=== PATIENT | male | born 1990 | race African-American/Black ===

== ENCOUNTER 2025-09-12 03:48 | Observation (INO) | payer BC, MEDICAID, SELFPAY ==
--- OUTSIDE RECORDS SUMMARY | 2020-03-09 08:15 | XMS_ITS | Continuity of Care Document ---
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 [address] , [place], [place], [address], [place]. tel:[phone] Family History Family Member Type Diagnosis Age At Onset Mother Problem Diabetes mellitus Problem No family history of Catarac ts Problem No family history of Glaucom a Mother Problem hypertension Father Problem Diabetes mellitus Problem No family history of Macular degeneration Payers Payer name Insurance type Covered green party ID Franciscaita duarte(s) [facility] [id number] Social History Type Description Quantity Date Captured [...]
--- OUTSIDE RECORDS SUMMARY | 2025-07-21 11:27 | XMS_ITS | Continuity of Care Document ---
Author Organization [employer] [place] Address [address] [place] [address] [address] [place] [address] Phone Care Team Providers Care Nurse Consultant Name Role Phone Ran Crowley PT Unavailable Unavailable Procedures Procedure Date Cancel or No Show Charge Therapeutic Activities Neuromuscular Re-Ed Therapeutic Exercise Manual Therapy Therapeutic Activities Neuromuscular Re-Ed Therapeutic Exercise Manual Therapy Waive Cancel or No Show - No Charge Waive Cancel or No Show - No Charge Progress Note Therapeutic Activities Neuromuscular Re-Ed Therapeutic Exercise Manual Therapy Hot or Cold Pack Therapeutic Activities Neuromuscular Re-Ed Therapeutic Exercise Manual Therapy Therapeutic Activities Neuromuscular Re-Ed Therapeutic Exercise Manual Therapy Hot or Cold Pack Therapeutic Activities Neuromuscular Re-Ed Therapeutic Exercise Manual Therapy Hot or Cold Pack Therapeutic Activities Neuromuscular Re-Ed Therapeutic Exercise Manual Therapy Hot or Cold Pack Therapeutic Activities Neuromuscular Re-Ed Therapeutic Exercise Manual Therapy Hot or Cold Pack Therapeutic Activities Neuromuscular Re-Ed Therapeutic Exercise Manual Therapy Therapeutic Activities Neuromuscular Re-Ed Manual Therapy Therapeutic Exercise Hot or Cold Pack Therapeutic Activities Neuromuscular Re-Ed Therapeutic Exercise Manual Therapy Hot or Cold Pack Waive Cancel or No Show - No Charge Therapeutic Activities Hot or Cold Pack Therapeutic Exercise PT Evaluation Moderate Complexity Therapeutic Activities Therapeutic Exercise Hot or Cold Pack Neuromuscular Re-Ed Therapeutic Exercise Manual Therapy Hot or Cold Pack Therapeutic Activities Neuromuscular Re-Ed Therapeutic Exercise Manual Therapy Hot or Cold Pack PT Evaluation Moderate Complexity Therapeutic Activities Therapeutic Exercise Manual Therapy Hot or Cold Pack Advance Directives Directive Yes / No Effective Date File Name No Information Encounters Encounter Description Practice Location Reason(s) For Visit Diagnoses Date Provider Providers Copied on Encounter [facility] [facility], [place], [place], [address], tel:[phone] [place] No Information 5 Keo Acosta . [facility], [place], [place], [address], tel:[phone] [place] No Information 5 Keo Tong. . Referring Provider: Physician Zurdo. [facility], [address], [place], [place], [address], [place] tel:[phone] [place] No Information 5 Keo Tong. . Referring Provider: Mary Gagnon, [address], [place], [address]. tel:[phone] [place] [address] [address], [place], [place], [address], [place] tel:[phone] [place] No Information 5 Zev Roland. . Referring Provider: Mary Gagnon [address], [place], [address]. tel:[phone] [place] [address] [place], [place] [address], [place], [place], [address], [place] tel:[phone] [place] No Information 5 Keo Tong. . Referring Provider: Physician Zurdo. [facility], [address] [facility], [place], [place], [address], [place] tel:[phone] [place] No Information 5 Keo Tong. . Referring Provider: Physician Zurdo. [facility] [facility], [place], [place], [address], tel:[phone] [place] No Information 5 Keo Tong. . Referring Provider: Mary Gagnon [address], [place], [address]. tel:[phone] [facility], [place], [place], [address], [place] tel:[phone] [place] No Information 0 5 Sonia Andrade. . Referring Provider: Mary Gagnon [address], [place], [address]. tel:[phone] [facility], [place], [place], [address], [place] tel:[phone] [place] No Information 0 5 Keo Ran. . Referring Provider: Mary Gagnon [address] Floor [address], [place], [address]. tel:[phone] [facility], [place], [place], [address], [place] tel:[phone] [place] No Information Sep-0 5 Keo Ran. . Referring Provider: Mary Gagnon [address] Floor [address], [place], [address]. tel:[phone] [facility], [place], [place], [address], [place] tel:[phone] [place] No Information 5 Keo Pavonon. . Referring Provider: Mary Gagnon [address] Floor [address], [place], [address]. tel:[phone] [facility], [place], [place], [address], [place] tel:[phone] [place] No Information 5 Keo Pavonon. . Referring Provider: Mary Gagnon [address] Floor [address], [place], [address]. tel:[phone] [facility], [place], [place], [address], [place] tel:[phone] [place] No Information 5 Sudhakar Jonas [address] [place] [address], [address], [place], [address], [place]. tel: [phone] Referring Provider: Mary Gagnon [address] Floor [address], [place], [address]. tel:[phone] [facility], [place], [place], [address], tel:[phone] [place] No Information 5 Keo Ran. . Referring Provider: Mary Gagnon, [address] Floor [address], [place], [address]. tel:[phone] [place] [address], [address] [facility], [place], [place], [address], tel:[phone] [place] No Information 5 Keo Ran. . Referring Provider: Mary Gagnon [address], [place], [address]. tel:[phone] [place] [address], [address] [facility], [place], [place], [address], tel:[phone] [place] No Information 5 Keo Ran. . Referring Provider: Physician Renner. [facility], [address], [place], [place], [address], tel:[phone] [place] No Information 5 Keo Ran. . Referring Provider: Mary Gagnon [address] Floor [address], [place], [address]. tel:[phone] [place] [address] [facility], [place], [place], [address], tel:[phone] [place] No Information 5 Keo Ran. . Referring Provider: Mary Gagnon [address] Floor [address], [place], [address]. tel:[phone] [place] [address], [place], [place], [address], [place] tel:[phone] [place] No Information 4 Keo Ran. . Referring Provider: Mary Gagnon [address] Floor [address], [place], [address]. tel:[phone] [place], [place] [address], [address], [place], [place], [address], [phone] [place] No Information 4 Keo Tong. . Referring Provider: Vincent Fernando[address], [place], [address]. tel:[phone] [facility], [address], [place], [place], [address], tel:[phone] [place] No Information 4 Keo Tong. . Referring Provider: Mary Gagnon [address], [place], [address]. tel:[phone] Family History Family Member Type Diagnosis Age At Onset No Information Payers Payer name Insurance type Covered alliance party ID rowan duarte(s) [facility] [id number] Social History Type Description Quantity Date Captured Comments Sex Male Smoking Status No Information Chief Complaint And Reason For Visit No Information Reason For Referral Reason For Referral No Information Plan Of Treatment Date Type Action Status Referral Ordered: Referrals: Specialist. Evaluate and Treat (related to Adjustment disorder with depressed mood) ordered Referral Ordered: Depression: Depression management program timeframe: 1 Day. (related to Depression) ordered Referral Ordered: Clinical Psychology (related to Depression) ordered History Of Present Illness Encounter Date Complaint History Of Prese nt Illness No Information Functional Status Date Functional Assessmen t No Information Instructions Date Instruction Additional Infor mation No Information Assessments Type Assessment Date No Information Patient Care Teams Name Effective Dates (start - stop) Status Members No Information
[2025-09-12] VITALS (27 sets, daily range): BP systolic 111–169; BP diastolic 68–111; PULSE 92–131; RESP 16–30; TEMP 36.7–37.2; O2SAT 94–100; BMI 42.3
--- NOTE | 2025-09-12 | ECHO_ITS ---
Patient Info Name: Eliana Oglesby Age: 35 years : 1990 Gender: Male Ht: 70 in Wt: 295 lbs BSA: 2.63 m2 HR: 105 bpm BP: 146 / 83 mmHg Heart Rhythm: Sinus Rhythm Technical Quality: Poor Exam Date: 09/12/2025 1:55 PM Patient Status: I Admit Date: 09/12/2025 Exam Type: CA echo dop bubble study w con Complete two-dimentional, color flow and Doppler transthoracic echocardiogram is performed with agitated saline and with contrast to opacify the left ventricle and to improve the delineation of the left ventricle endocardial borders. Staff Referring Physician: Krzysztof Troncoso Host/Hostess: Oracio Brunson III Attending Provider: Ramila Chavarria DO Contrast/Agitated Saline Contrast/Ag. Saline: Agitated Saline Amount: 16.00 ml Existing IV Access: Yes IV Access Condition: patent with no signs of infiltration Contrast/Ag. Saline: Definity Amount: 2.00 ml Administered By: Oracio Brunson III Existing IV Access: Yes IV Access Condition: patent with no signs of infiltration Reason for Poor Study: poor echocardiographic windows Summary 1. TECH UNABLE TO VIEW R SIDE OF HEART DUE TO POOR WINDOWS. NURSE PUSHED BUBBLES FOR BUBBLE STUDY. POOR BUBBLE STUDY DUE TO POOR APICAL WINDOWS. 2. Technically challenging exam, definity contrast utilized. 3. Left ventricular hypertrophy with normal size and well-preserved systolic function. 4. Grade 1 diastolic noncompliance. 5. No valve abnormality. 6. Agitated saline contrast injection negative for shunt. Left Ventricle Left ventricular chamber dimension is normal. Left ventricular systolic function is normal, estimated at 65-70. There is mild concentric increased left ventricular wall thickness. The left ventricular diastolic function is grade I diastolic dysfunction. Right Ventricle Right ventricular chamber dimension is normal. Left Atria Left atrial chamber dimension is normal. Right Atria Right atrial chamber dimension is normal. Atrial Septum Intact interatrial septum visualized by agitated saline imaging. Aortic Valve The aortic valve is normal. Pulmonic Valve The pulmonic valve is normal. Mitral Valve The mitral valve has normal leaflets. Tricuspid Valve The tricuspid valve leaflets are normal. Pericardium/Pleural The pericardium appears normal. Aorta The aortic root size at the sinus of Valsalva is normal. Left Ventricular Outflow Tract Name Value Normal LVOT 2D LVOT Diameter 2.3 cm LVOT Doppler LVOT Peak Velocity 114 cm/s LVOT Peak Gradient 5 mmHg LVOT Mean Gradient 3 mmHg LVOT VTI 26 cm LVOT VTI/AV VTI Ratio 0.9 LVOT Stroke Volume 102 ml LVOT CO 9.5 l/min LVOT CI 3.6 l/min/m2 Pulmonic Valve Name Value Normal PV Doppler PV Peak Velocity 107 cm/s PV Peak Gradient 5 mmHg PV Mean Gradient 3 mmHg Mitral Valve Name Value Normal MV Doppler MV Peak Gradient 5 mmHg MV Mean Gradient 3 mmHg MV Area (Cont Eq VTI) 5.5 cm2 MV Diastolic Function MV E Peak Velocity 98 cm/s MV A Peak Velocity 107 cm/s MV E/A 0.9 MV Decel Time (PW) 114 ms MV Annular TDI MV E/e' (Septal) 9.6 MV E/e' (Lateral) 8.7 MV E/e' (Average) 9.2 Tricuspid Valve Name Value Normal TV Annular TDI TV Lateral Svetlana s' Velocity 16.4 cm/s >=9.5 Aortic Valve Name Value Normal AV Doppler AV Peak Velocity 173 cm/s AV Peak Gradient 12 mmHg AV Mean Gradient 6 mmHg AV VTI 30 cm AV Area (Cont Eq VTI) 3.4 cm2 >=3.0 AV Area (Cont Eq Hussein) 2.6 cm2 AV DI (Hussein) 0.66 AV Regurgitation 2D LVOT Area 4.0 cm2 Ventricles Name Value Normal LV Dimensions 2D/MM IVS Diastolic Thickness (2D) 1.2 cm 0.6-1.0 LVID Diastole (2D) 5.3 cm 4.2-5.8 LVIW Diastolic Thickness (2D) 1.2 cm 0.6-1.0 LVID Systole (2D) 3.6 cm 2.5-4.0 LVOT Diameter 2.3 cm LV Mass (2D Cubed) 259.75 g 88.00-224.00 LV Mass Index (2D Cubed) 99 g/m2 49-115 Relative Wall Thickness (2D) 0.47 <=0.42 LV Fractional Shortening/Ejection Fraction 2D/MM LV Fractional Shortening (2D) 31 % 25-43 LV EF (2D Teichholz) 58 % LV Diastolic Volume (4C MOD) 145 ml LV EF (4C MOD) 66 % LV Diastolic Volume (2C MOD) 70 ml LV EF (2C MOD) 56 % LV Diastolic Volume (BP MOD) 107 ml 62-150 LV Diastolic Volume Index (BP MOD) 41 ml/m2 34-74 LV Systolic Volume (BP MOD) 40 ml 21-61 LV Systolic Volume Index (BP MOD) 15 ml/m2 11-31 LV EF (BP MOD) 63 % 52-72 LV Diastolic Length (4C) 8.1 cm LV Systolic Length (4C) 6.0 cm LV Stroke Volume (4C MOD) 96 ml Atria Name Value Normal LA Dimensions LA Volume (4C A-L) 75 ml LA Volume (BP A-L) 71 ml RA Dimensions RA Systolic Major [place] Length (4C) 5.8 cm 2.1-2.7 RA Area (4C) 20.5 cm2 <=18.0 Report Signatures
--- NOTE | ~2025-09-12 | XR_ITS ---
Examination: XR femur LT min 2V Clinical History: MRI clearance Comparison: None Technique: 2 views left femur 4 films Findings/impression: 1. Tiny metallic foreign body distal thigh soft tissues. Probably 1 mm. 2. No acute bony abnormality. 3. Distal femur exostosis or heterotopic bone. Reviewed, dictated and finalized at location R. NDARY SPECIAL EDUCATION TEACHER
--- NOTE | ~2025-09-12 | MR_ITS ---
EXAMINATION: MR brain/brain stem wo con DATE: 09/12/2025 12:31 INDICATION: Seizures. TECHNIQUE: Magnetic resonance imaging (MRI) of the brain and brainstem was performed without intravenous contrast. Diffusion sequence, FLAIR sequence, T1, T2 sequence and T2*gradient sequence were obtained. COMPARISON: CT angiogram dated 09/12/2025. The brain without contrast dated 09/12/2025. FINDINGS: No acute ischemia on the diffusion sequence. No intracranial bleed. No ventriculomegaly or midline shift. No significant chronic ischemic change. Major arteries of [place] are patent. IMPRESSION: 1. No evidence of acute ischemia or intracranial bleed. 2 no ventriculomegaly or midline shift. No space-occupying lesions are seen. Reviewed, dictated and finalized at location T. TRY INSPECTOR
--- NOTE | ~2025-09-12 | CT_ITS ---
CT HEAD CTA NECK, CTA HEAD Clinical History: seizure, left deficits Comparison: None TECHNIQUE: Unenhanced axial images skull base to vertex Coronal, sagittal reformats Helical images thoracic inlet to vertex 100 mL Omnipaque 350 Coronal, sagittal reformats. Multiplanar MIPS. CT images acquired with automatic exposure control for dose reduction DLP: 681 mGy-cm Findings: CT HEAD Sulci, ventricles: Unremarkable. No intracerebral hemorrhage. No evidence acute territorial infarct. No mass effect, midline shift. Bony calvarium intact. Visualized paranasal sinuses: Clear. Mastoid air cells: Clear. No abnormal foci of contrast enhancement. Patent dural venous sinuses. CTA NECK NASCET Criteria utilized Aortic arch: No aneurysm or dissection. Great vessel origins: No stenosis. CCAs: No dissection. No stenosis. Cervical ICAs: No dissection. No stenosis. Vertebral Arteries: Patent. But mid portions obscured by streak artifact. Lung Apices: Clear. Thyroid: Unremarkable. Nodes: No enlarged nodes. Bones: No acute bony abnormality. Left maxillary dental periapical lucency/infection. Posterior neck skin thickening. CTA HEAD: Aneurysms: None. Intracranial ICAs: Patent, unremarkable. ACAs and their distal branches: Patent, unremarkable. A-Comm: Identified. Patent, unremarkable. MCAs and their distal branches: Patent, unremarkable. Basilar artery: Patent, unremarkable. floorleader and their distal branches: Patent, unremarkable. P-Comms: Identified. IMPRESSION: CT HEAD: 1. No acute intracranial findings. CTA NECK: 1. No ICA stenosis or other acute arterial abnormality. CTA HEAD: 1. No large vessel arterial occlusive disease or other acute findings. 2. No aneurysms. Reviewed, dictated and finalized at location R. NDER [employer] HELPER IMPRESSION: CT HEAD: 1. No acute intracranial findings. CTA NECK: 1. No ICA stenosis or other acute arterial abnormality. CTA HEAD: 1. No large vessel arterial occlusive disease or other acute findings. 2. No aneurysms.
--- NOTE | 2025-09-12 03:45 | PC.NURSE ---
upon transfer from EMS stretcher to room 8 bed, pt had another seizure with R side mildly shaking and left lateral eye deviation with non reactive pupils. EDP at bedside, VORB 4500 mg Keppra and 5 mg IV VERSED per EDP .
[2025-09-12] MEDS: MIDAZOLAM HCL (*CRX) 2 MG/2 ML VIAL 5 MG IV PUSH (03:55)
--- NOTE | 2025-09-12 03:57 | ECG_ITS ---
Test Date: 2025-09-12 04:23:28 Measurements Intervals [place] Rate: 116 P: 54 IL: 120 QRS: 70 QRSD: 101 T: -50 QT: 326 QTc: 453 Interpretive Statements SINUS TACHYCARDIA NONSPECIFIC ST AND T-WAVE ABNORMALITY ABNORMAL ECG No previous ECG available for comparison Electronically Signed On 09-12-2025 07:29:05 [employer] by Kvng Alcala M.D.
--- NOTE | 2025-09-12 04:00 | ED_ITS ---
HPI - Seizure General Chief Complaint: Seizure Stated Complaint: seizure Time Seen by Provider: 09/12/25 03:58 History of Present Illness HPI Narrative: 35-year-old male with history of hypertension and diabetes presenting to the emergency department via EMS for concerns of seizure activity. Patient was reportedly in his normal state of health around 11 before he went to bed but he was found by family members then walking around the house acting altered not answering questions and walking in circles. EMS found him staring off into space and drooling out the right-sided his face unresponsive. He was transferred to the ambulance where he is and had a generalized tonic-clonic seizure activity witnessed by EMS that lasted 1-2 minutes. Patient was given intranasal 10 mg Versed. Non-rebreather applied and he was transferred to the hospital. On transition from the stretcher into the examination room patient had another seizure that was witnessed with left lateral gaze deviation forceful eye deviation and nonreactive pupils with some mild shaking. Given 5 mg of intra venous Versed. Patient seemed to only be moving his right side upper and lower extremity per EMS and not moving his left side at all. Occasionally blinking. No prior seizure activity reported. He did seem to have less activity his left side when sternal rubbing compared to his right side which was moving easily. Patient has no visible signs of trauma. History of diabetes and hypertension and family members not present for collateral formation at this time. Blood sugar 156. complaint: seizure Related Data Allergies Allergy/AdvReac Type Severity Reaction Status Date / Time No Known Allergies Allergy Verified 09/12/25 04:47 Review of Systems 2 Review of Systems: As reviewed above in HPI All systems reviewed & are unremarkable except as noted in HPI and below Exam 2 Narrative: GENERAL: Actively seizing on arrival with left lateral gaze deviation and forced pupil deviation with minimally reactive pupils, only moving his right side on initial assessment. HEAD: Normocephalic and atraumatic EYES: Forced gaze deviation to the left side, pupils 2 mm nonreactive ENT: Nares clear, no rhinorrhea or epistaxis. Mucous membranes moist. NECK: Supple. CHEST: Clear to auscultation, no respiratory distress HEART: Tachycardic rate, regular rhythm, normal peripheral pulses. ABDOMEN: Soft and nondistended, nontender, no rigidity or guarding EXTREMITIES: Normal range of motion. No peripheral edema SKIN: Warm, dry, no rash. NEURO: Seizing with left forced gaze deviation, not alert or oriented, seemingly moving his right upper and lower extremity with sternal rubbing after seizure but minimal movement from the left upper extremity and no movement from the left lower extremity noted. Course Vital Signs Vital signs: Vital Signs Temperature 37.0 C 09/12/25 03:46 Pulse Rate 131 H 09/12/25 03:46 Respiratory Rate 23 H 09/12/25 03:46 Blood Pressure 166/103 H 09/12/25 03:46 Pulse Oximetry 100 09/12/25 03:46 Oxygen Delivery Non-Rebreather Mask 09/12/25 03:46 Oxygen Flow Rate 15 09/12/25 03:46 Temperature 37.0 C 09/12/25 03:46 Pulse Rate 96 09/12/25 06:01 Respiratory Rate 20 09/12/25 06:01 Blood Pressure 157/103 H 09/12/25 06:01 Pulse Oximetry 98 09/12/25 06:01 Oxygen Delivery Room Air 09/12/25 05:15 Oxygen Flow Rate 15 09/12/25 03:58 MDM - Seizure MDM Narrative Medical decision making narrative: 35-year-old male with history of hypertension and diabetes presenting to the emergency department via EMS for concerns of seizure activity. Patient was reportedly in his normal state of health around 11 before he went to bed but he was found by family members then walking around the house acting altered not answering questions and walking in circles. EMS found him staring off into space and drooling out the right-sided his face unresponsive. He was transferred to the ambulance where he is and had a generalized tonic-clonic seizure activity witnessed by EMS that lasted 1-2 minutes. Patient was given intranasal 10 mg Versed. Non-rebreather applied and he was transferred to the hospital. On transition from the stretcher into the examination room patient had another seizure that was witnessed with left lateral gaze deviation forceful eye deviation and nonreactive pupils with some mild shaking. Given 5 mg of intra venous Versed. Patient seemed to only be moving his right side upper and lower extremity per EMS and not moving his left side at all. Occasionally blinking. No prior seizure activity reported. He did seem to have less activity his left side when sternal rubbing compared to his right side which was moving easily. Patient has no visible signs of trauma. History of diabetes and hypertension and family members not present for collateral formation at this time. Blood sugar 156. Patient is hypertensive tachycardic, saturating 100% on 15 L non-rebreather. Afebrile. Seemingly moving his right upper extremity and right lower extremity to sternal rub between seizure episodes. Does have evidence of tongue biting anteriorly but no blood in the oropharynx. Left lateral gaze deviation and shaking of extremities. No return to baseline between episodes of seizure. He was given additional 5 mg of IV Versed and 4500 mg of IV Keppra for suspected status epilepticus. Emergent CT head and CT angiography of the head neck ordered to rule out intracranial bleeding or dissection/clot. Laboratory studies lactic acid and drug screening ordered. After returning from CT scan patient is becoming more awake and arousable. Definitely postictal. Elevated lactic acid but otherwise laboratory studies are reassuring. Pulse normalized. 100% on room air now. Mildly hypertensive still. CT head and CT angiography shows no acute findings or intracranial hemorrhage. Some artifact versus narrowing in the left vertebral artery otherwise no large vessel occlusion or injury noted. Patient now becoming awake alert but postictal. He is A&O 2-3 at this time and sleeping but is answering all my questions and speaking clearly. No signs of deficits now he is moving all extremities symmetrically without any difficulty, sensation loss, motor loss. No facial asymmetry or drooping. Spoke with family member at bedside and this is never happened before. We went over his medication history including his insulin pump, several antihypertensives and gabapentin for peripheral neuropathy. Previously saw neurologist for migraine treatments but currently not taking any migraine medications. Patient is not endorsing headache at this time. Given patient has normalized and no longer having any seizure activity I discussed this with the neurologist on-call Dr. Castrejon who was comfortable managing him here and recommended MRI an EEG obtained. Awaiting discussion with hospitalist for admission. Spoke to Dr. Chavarria who accepted the patient to the IMU at this time. P.r.n. Versed ordered if he has another seizure. Labs EEG, MRI, consult placed. Medical Records Attestation: I reviewed the patient's medical records. Lab Data Attestation: I reviewed the patient's lab results. 09/12/25 04:25 09/12/25 04:25 Labs: Lab Results 09/12/25 09/12/25 09/12/25 Range/Units 04:25 04:31 04:41 WBC 5.7 (4.5-10.0) K/mm3 RBC 4.79 (4.6-6.20) M/mm3 Hgb 13.5 L (14.0-18.0) g/dL Hct 40.7 L (42.0-52.0) % MCV 85.0 (80-100) fl MCH 28.2 (26-34) pg MCHC 33.2 (32-36) g/dl RDW 14.6 H (11.5-14.5) % Plt Count 142 L (150-375) k/mm3 MPV 9.4 (7.4-10.4) fl Immature Gran % (Auto) 0.4 (0-0.5) % Neut % (Auto) 69.8 (45.5-73.1) % Lymph % (Auto) 18.4 (18.3-44.2) % [place] % (Auto) 10.6 H (2.6-8.5) % Eos % (Auto) 0.4 (0-4.4) % Baso % (Auto) 0.4 (0.2-1.2) % Lymph # (Auto) 1.04 (0.9-3.2) K/mm3 [place] # (Auto) 0.6 (0.1-0.6) K/mm3 Eos # (Auto) 0.0 (0-0.3) K/mm3 Baso # (Auto) 0.0 (0.0-0.1) K/mm3 Abs Immat Gran (auto) 0.02 (0.00-0.031) K/mm3 Absolute Neuts (auto) 4.0 (1.3-6.7) K/mm3 Absolute Nucleated RBC 0.000 (0.0-0.012) K/mm3 Nucleated RBC % 0.0 (0.0-0.2) % Sodium 139 (137-145) mmol/L Potassium 3.4 (3.4-5.0) mmol/L Chloride 105 (98-107) mmol/L Carbon Dioxide 25 (22-30) mmol/L Anion Gap 9 (4-12) mmol/L BUN 15 (9-20) mg/dL Creatinine 1.10 (0.7-1.3) mg/dL Estim Creat Clear Calc 108 ml/min Estimated GFR > 60 (59 - ) Glucose 111 H (65-110) mg/dL POC Capillary Glucose 119 H (65-105) mg/dl Lactic Acid 4.1 H* (0.7-2.0) mmol/L Calcium 8.1 L (8.4-10.2) mg/dL Total Bilirubin 0.4 (0.2-1.3) mg/dL AST 24 (17-59) U/L ALT 19 (6-50) U/L Alkaline Phosphatase 72 (38-126) U/L Total Protein 6.9 (6.3-8.2) g/dL Albumin 3.6 (3.5-5.1) g/dL TSH 1.550 (0.465-4.680) uIU/mL Urine Color Yellow (Yellow) Urine Appearance Clear (Clear) Urine pH 5.5 (5.0-9.0) Ur Specific [place] 1.034 (1.001-1.035) Urine Protein 1+ H (Negative) mg/dL Urine Glucose (UA) Trace H (Negative) mg/dL Urine Ketones Trace H (Negative) mg/dL Ur Blood (Man) Trace (Negative) Urine Nitrate Negative (Negative) Urine Bilirubin Negative (Negative) Urine Urobilinogen 0.2 (<2.0) mg/dL Leukocyte Esterase Rfl Negative (Negative) JOI/UL Urine RBC 0-2 (0-2) /hpf Urine WBC 0-5 (0-3) /hpf Ur Squamous Epith Cells None seen (Few) /hpf Urine Bacteria None seen /hpf Urine Casts 0-2 Salicylates < 1.0 L (2-20) mg/dL Urine Opiates Screen Negative (Negative) Urine Methadone Screen Negative (Negative) Acetaminophen < 10 L (10-30) ug/mL Ur Barbiturates Screen Negative (Negative) Ur Phencyclidine Scrn Negative (Negative) Ur Amphetamine Screen Negative (Negative) U Benzodiazepines Scrn Positive A (Negative) Urine Cocaine Screen Negative (Negative) U Cannabinoids Screen Positive A (Negative) Ethyl Alcohol < 10 (<10) mg/dL Imaging Data Attestation: I personally reviewed and interpreted this imaging study as follows: My impression: No acute findings or LVO Critical Care Time Critical Care Time Critical Care Time: Yes Total Critical Care Time: 75 Discharge Plan Discharge Clinical Impression: New onset seizure, Generalized seizure, AMS (altered mental status) Patient Disposition: Still a Patient Condition: Stable Patient Language: American Follow-up/Referrals: Juvencio,MD Rudy [Primary Care Provider, Unknown] Time of Disposition: 06:31
[2025-09-12] MEDS: levETIRAcetam 1500MG/NACL100ML 1,500 MG/100 ML BAG 600 MG IVPB ×3 (04:12→04:30)
[2025-09-12] MEDS: LACTATED RINGERS 1,000 ML 999 ML IV CONT (04:13)
--- NOTE | 2025-09-12 04:28 | PC.NURSE ---
while in room pt started moving all 4 extremities and attempting to sit up. pt still closing eyes and unresponsive verbally. EDP made aware. pt post-ictal resting on stretcher, o2 97% RA, RR 14. family at bedside.
--- NOTE | 2025-09-12 04:28 | PC.NURSE ---
In room pt started moving all 4 extremities. EDP at bedside.
[2025-09-12 04:30] LABS: Hematocrit 40.7 % (42.0-52.0); Hemoglobin 13.5 g/dL (14.0-18.0); Immature Granulocyte Percent A 0.4 % (0-0.5); Lymphocytes Absolute Auto 1.04 K/mm3 (0.9-3.2); Mean Corpuscular HGB Conc 33.2 g/dl (32-36); Mean Corpuscular Hemoglobin 28.2 pg (26-34); Mean Corpuscular Volume 85.0 fl (80-100); Nucleated Red Blood Cells Absolute Auto 0.000 K/mm3 (0.0-0.012); Nucleated Red Blood Cells Perc 0.0 % (0.0-0.2); Platelet Count Result 142 k/mm3 (150-375); Red Blood Count 4.79 M/mm3 (4.6-6.20); White Blood Count 5.7 K/mm3 (4.5-10.0)
[2025-09-12 04:43] LABS: Acetaminophen < 10 ug/mL (10-30); Salicylate < 1.0 mg/dL (2-20)
[2025-09-12 04:45] LABS: Alanine Aminotransferase 19 U/L (6-50); Albumin Level 3.6 g/dL (3.5-5.1); Alkaline Phosphatase 72 U/L (38-126); Anion Gap 9 mmol/L (4-12); Aspartate Amino Transferase 24 U/L (17-59); Bilirubin,Total 0.4 mg/dL (0.2-1.3); Blood Urea Nitrogen 15 mg/dL (9-20); Calcium 8.1 mg/dL (8.4-10.2); Carbon Dioxide 25 mmol/L (22-30); Chloride 105 mmol/L (98-107); Estimated CRCL calculation 108 ml/min; Estimated Glomerular Filt Rate > 60; Glucose 111 mg/dL (65-110); Potassium 3.4 mmol/L (3.4-5.0); Sodium 139 mmol/L (137-145); Total Protein 6.9 g/dL (6.3-8.2)
--- OUTSIDE RECORDS SUMMARY | 2025-09-12 04:49 | XMS_ITS | Encounter Summary ---
Author Organization [facility] Address [address] [place] [address] Phone Care Team Providers Care Mechanical Manager Name Role Phone Rudy Henning MD Primary Care Provider [phone] Oracio Blue MD Unavailable [phone] Encounter Details Date Type Department Care Team (Late st Contact Info) Description 04/13/2024 Documentation [facility] Medicine Rheumatology [address] [place] [address] [place] [address] Lelo Michel CMA Social History Tobacco Use Types Packs/Day Years Used Date Smoking Tobacco: Never Smokeless Tobacco: Never Alcohol Use Standard Drinks/Week Comments Not Currently 0 (1 standard drink = 0.6 oz pur e alcohol) AUDIT-C Answer Date Recorded Q1: How often do you have a drink containing alcohol? Never 12/16/2023 Q2: How many drinks containi ng alcohol do you have on a typical day when you are drinking? Patient does not drink Q3: How often do you have si x or more drinks on one occasion? Never 12/16/2023 PHQ-2 Answer Date Recorded PHQ-2 Total Score 0 09/09/2023 Personal Safety Answer Date Recorded Have you ever been in or are you currently in a harmful physical or emotional relationship or is someone making you feel afraid or unsafe? Denies 06/21/2023 Sex and Gender Information Value Date Recorded Sex Assigned at Not on file Legal Sex Male 7:02 PM CDT Gender Identity Not on file Sexual Orientation Not on file documented as of this encounter Functional Status * BP Location Answer Date of Assessment Author Left arm 04/13/2024 1:12 PM CDMyles Cuellar CMA * BP Location Answer Date of Assessment Author Left arm 04/13/2024 1:12 PM CDMyles Cuellar CMA documented as of this encounter Plan of Treatment Not on file documented as of this encounter Visit Diagnoses Not on filedocumented in this encounter Additional Health Concerns Infection Onset Date Last Indicated Resolved Time COVID: Suspected 11/03/2024 11/03/2024 11/04/2024 12:19 AM ELECTRONICS SPECIALIST COVID: Suspected 11/24/2024 11/24/2024 11/24/2024 7:24 PM ELECTRONICS SPECIALIST Influenza, adult 11/24/2024 11/24/2024 12/01/2024 3:07 AM ELECTRONICS SPECIALIST documented as of this encounter Care Teams Mechanical Manager Relationship Specialty Start Date End Date Rudy Henning MD PCP - General Family Medicine 05/28/21 Oracio Blue MD [address] [address] Consulting Physician Endocrinology Diabetes & Metabolism 03/22/25 documented as of this encounter
[2025-09-12 04:54] LABS: Add Urine Microscopic? YES; Appearance Urine Clear (Clear); Glucose Urine UA Trace mg/dL (Negative); Leukocyte Esterase Ur Negative LEU/UL (Negative); Nitrate Urine Negative (Negative); Non Pathogenic Casts 0-2; Specific Grav Ur 1.034 (1.001-1.035)
[2025-09-12 05:14] LABS: Cannabinoid Screen Urine Positive (Negative)
[2025-09-12] MEDS: Please enter patient height and weight for medication dosing 1 EACH XX (05:16)
[2025-09-12 05:20] LABS: Thyroid Stimulating Hormone 1.550 uIU/mL (0.465-4.680)
--- NOTE | 2025-09-12 06:51 | WPCEDHO ---
ED Hand Off Checklist All vitals saved:yes IV Site documented:yes All med administrations documented:yes Triage Note Triage Note Pt to ED via EMS w c/o seizure. 09/12/25 03:46 EMS states that the family reports pt was up and walking around in circles not saying anything. EMS reports when they arrived, pt was sitting down staring off and was drooling . EMS reports pt is unresponsive verbally. EMS also reports upon transport into ambulance, pt appeared to have a tonic clonic seizure for about 30 seconds. Pt was placed on 15 L nonrebreather by EMS. pt was given 10 mg Versed intranasally. family reports pt went to bed fine around 2300 and drank some patron and smoked some weed. hx of diabetes and hypertension. BP of 210/110, blood sugar 156. pt in room moving R side and occasionally blinking. no prior seizures. EDP at bedside and VORB 5 mg versed IV. Pt moved L arm upon sternal rub. Allergies No Known Allergies Allergy (Verified 09/12/25 04:47) Administered/Completed Medications Discontinued Medications Lactated Ringer's (Lr - Lactated Ringers Iv) 1,000 mls @ 999 mls/hr IV CONT .Q1H1M STA Stop: 09/12/25 04:57 Last Infusion: 09/12/25 05:19 Dose: Infused Documented By: Admin: 09/12/25 04:13 Dose: 999 mls/hr Documented By: FRIDA Levetiracetam (Keppra Iv) 1,500 mg in 100 mls @ 600 mls/hr IVPB ONCE STA Stop: 09/12/25 04:08 Last Infusion: 09/12/25 04:25 Dose: Infused Documented By: Admin: 09/12/25 04:12 Dose: 600 mls/hr Documented By: FRIDA Levetiracetam (Keppra Iv) 1,500 mg in 100 mls @ 600 mls/hr IVPB ONCE ONE Stop: 09/12/25 04:09 Last Infusion: 09/12/25 04:38 Dose: Infused Documented By: Admin: 09/12/25 04:27 Dose: 600 mls/hr Documented By: FRIDA Levetiracetam (Keppra Iv) 1,500 mg in 100 mls @ 600 mls/hr IVPB ONCE ONE Stop: 09/12/25 04:09 Last Infusion: 09/12/25 04:38 Dose: Infused Documented By: Admin: 09/12/25 04:30 Dose: 600 mls/hr Documented By: FRIDA Midazolam HCl (Midazolam Hcl (*Crx) 2 Mg/2 Ml Vial) 5 mg IV PUSH ONCE ONE Stop: 09/12/25 03:58 Last Admin: 09/12/25 03:55 Dose: 5 mg Documented By: FRIDA Miscellaneous Information (Please Enter Patient Height And Weight For Medication Dosing) 1 each XX CLARIFY SHAHEEN Stop: 10/12/25 00:00 Last Admin: 09/12/25 05:16 Dose: 1 each Documented By: Admin: 09/12/25 04:32 Dose: Not Given Documented By: FRIDA Non-Admin Reason: Order Discontinued Notes 09/12/25 04:28 Nurse Note by Amy Edgar In room pt started moving all 4 extremities. EDP at bedside. Initialized on 09/12/25 04:28 - END OF NOTE 09/12/25 04:28 (created 09/12/25 05:03) Nurse Note by Amy Edgar while in room pt started moving all 4 extremities and attempting to sit up. pt still closing eyes and unresponsive verbally. EDP made aware. pt post-ictal resting on stretcher, o2 97% RA, RR 14. family at bedside. Initialized on 09/12/25 05:03 - END OF NOTE 09/12/25 03:45 (created 09/12/25 05:11) Nurse Note by Amy Edgar upon transfer from EMS stretcher to room 8 bed, pt had another seizure with R side mildly shaking and left lateral eye deviation with non reactive pupils. EDP at bedside, VORB 4500 mg Keppra and 5 mg IV VERSED per EDP . Initialized on 09/12/25 05:11 - END OF NOTE Interventions/Assessments Cardiac Monitoring Start: 09/12/25 03:44 Freq: Status: Active Protocol: Document 09/12/25 04:15 EMW (Rec: 09/12/25 04:16 EMW [id number]) Rectangular Tank Cooper Assessment Rectangular Tank Cooper Yes Applied Pulse Rate (60-100) 119 H IV / Saline Lock, Insert Start: 09/12/25 03:57 Freq: STAT Status: Active Protocol: Document 09/12/25 04:30 EMW (Rec: 09/12/25 04:31 EMW [id number]) IV Assessment Peripheral Access Right Wrist IV Catheter Access Initiated IV Insertion Date 09/12/25 IV Insertion Time 04:31 Catheter Gauge 20 Ultrasound Used for No Placement IV Site Assessment WNL IV Care and WNL Maintenance PA: Neurological Assessment Start: 09/12/25 03:44 Freq: Status: Active Protocol: Document 09/12/25 06:25 EMW (Rec: 09/12/25 06:31 EMW [id number]) Neurological Assessment Level of Drowsy Consciousness Arousable to Verbal Orientation Oriented to Person,Oriented to Place,Oriented to Time Neurological Confusion Symptoms Hallucination Type None Behavior Fatigued Additional pt slow to answer Neurological Comments Ability to Maintain Unable to Assess Balance Speech Pattern Delayed Kitty Coma Scale Eyes To Voice Verbal Disoriented Motor Localizes Pain Kitty Coma Total 12 Score PA: Respiratory Assessment Start: 09/12/25 03:44 Freq: Status: Active Protocol: Document 09/12/25 03:58 EMW (Rec: 09/12/25 04:55 EMW [id number]) Respiratory Assessment Pattern Tachypnea Depth Shallow Oxygen Delivery Oxygen Delivery Non-Rebreather Mask Oxygen Flow Rate 15 Pulse Oximetry (90- 100 100) Comments snoring respirations Last Vital Signs Temperature 98.6 F 09/12/25 03:46 Pulse Rate 95 09/12/25 06:16 Respiratory Rate 19 09/12/25 06:16 Pulse Oximetry 99 09/12/25 06:16 Blood Pressure 155/98 H 09/12/25 06:16 Blood Pressure Mean 113 09/12/25 06:16 Oxygen Delivery Room Air 09/12/25 05:15 Oxygen Flow Rate 15 09/12/25 03:58 Weight 128 kg 09/12/25 04:10 Last Result - Abnormals Only Hgb 13.5 g/dL (14.0-18.0) L 09/12/25 04:25 Hct 40.7 % (42.0-52.0) L 09/12/25 04:25 RDW 14.6 % (11.5-14.5) H 09/12/25 04:25 Plt Count 142 k/mm3 (150-375) L 09/12/25 04:25 Sharkey % (Auto) 10.6 % (2.6-8.5) H 09/12/25 04:25 Glucose 111 mg/dL (65-110) H 09/12/25 04:25 POC Capillary Glucose 119 mg/dl (65-105) H 09/12/25 04:31 Lactic Acid 4.1 mmol/L (0.7-2.0) H* 09/12/25 04:25 Calcium 8.1 mg/dL (8.4-10.2) L 09/12/25 04:25 Urine Protein 1+ mg/dL (Negative) H 09/12/25 04:41 Urine Glucose (UA) Trace mg/dL (Negative) H 09/12/25 04:41 Urine Ketones Trace mg/dL (Negative) H 09/12/25 04:41 Salicylates < 1.0 mg/dL (2-20) L 09/12/25 04:25 Acetaminophen < 10 ug/mL (10-30) L 09/12/25 04:25 U Benzodiazepines Scrn Positive (Negative) A 09/12/25 04:41 U Cannabinoids Screen Positive (Negative) A 09/12/25 04:41
--- NOTE | 2025-09-12 07:15 | ADMGEN ---
This patient, Eliana Oglesby, was admitted to IMU Room 205-01. Patient/family oriented to hospital policies and general routines including ID bracelet, bed and alarms, visiting hours, pain management, procedures, bathroom and other care routines, personal items, smoking policy, room service/diet, and visiting hours. Information on how to activate the Rapid Response Team has been discussed. Patient/Family are encouraged to report perceived risks to care and to ask questions if they do not understand what they are told or what they should do.
--- NOTE | 2025-09-12 08:14 | P.HP_ITS ---
H&P: HPI History of Present Illness Date/Time: 09/12/25 08:14 Chief Complaint: Seizure-like activity Narrative: Eliana Oglesby is a 35-year-old male with a past medical history of HTN and T2DM who presents to the hospital with seizure like activity. Patient is accompanied by who states that the patient got up to go to the bathroom in the middle the night last night but was found walking remains not acting like himself. states that he was in the bathroom leaning on the counter staring off into space and he had his right flexed. She also states that the right side of his face was unresponsive and was drooling. EMS was subsequently called and patient was witnessed having a generalized tonic clonic seizure that lasted 1-2 minutes in the ambulance. He was given 10 mg of Versed and was subsequently transferred to the hospital. Patient another seizure while in the emergency department with left lateral gaze deviation and nonreactive pupils and was given another 5 mg of Versed. No history of prior seizures, no signs of trauma. Denies any recent travel, illnesses or hospitalizations. states that there were several deaths in the family within the past 2 weeks and that they have been under immense stress recently. ED workup: 37? C, heart rate 96, respiratory rate 20, 98% on room air, 157/103 WBC 5.7, Hgb 13.5, Hct 40.7, Plt 142, Na 139, K 3.4, BUN 15, Cr 1.10, Glucose 119, Lactic acid 4.1, LFTs wnl, tsh wnl UA: Not indicative of UTI Head CT: No acute intracranial findings CTA head/neck: No ICA stenosis or other acute arterial abnormality, no large vessel arterial occlusive disease, aneurysms or other acute findings EKG: Sinus tachycardia, nonspecific ST and T-wave abnormality Review of Systems Review of Systems: All systems reviewed & are unremarkable except as noted in HPI and below PMFSH Past Medical History Medical History (Updated 09/12/25 @ 12:21 by Rayray Castrejon MD) Exogenous obesity Obstructive sleep apnea syndrome Hypertension Diabetes mellitus Family History Family History (Updated 09/12/25 @ 07:35 by Radha Donaldson RN) Mother Diabetes mellitus Hypertension Social History Social History Smoking status: Never smoker Alcohol intake: current Drinks per week: 1 Substance use: current Substance use type: marijuana Last use: 09/11/25 Spiritual care concerns: No Meds Home Medications and Allergies Home Medications ?Medication ?Instructions ?Recorded ?Confirmed ?Type insulin lispro 200 unit/mL (3 mL) 1 sliding scale dose subcut 09/12/25 09/12/25 History subcutaneous pen (Humalog KwikPen TIDWMEAL U-200 Insulin) tirzepatide 15 mg/0.5 mL 15 mg subcut WEEKLY 09/12/25 09/12/25 History subcutaneous pen injector (Mounjaro) Allergies Allergy/AdvReac Type Severity Reaction Status Date / Time No Known Allergies Allergy Verified 09/12/25 07:21 Vital Signs Vital Signs - 24 hr 09/12/25 03:46 09/12/25 03:46 09/12/25 03:58 Temperature 98.6 F Pulse Rate 131 H Respiratory Rate 23 H Blood Pressure 166/103 H Pulse Oximetry 100 100 100 Oxygen Delivery Non-Rebreather Mask Non-Rebreather Mask Non-Rebreather Mask Oxygen Flow Rate 15 15 15 09/12/25 04:15 09/12/25 04:25 09/12/25 04:26 Temperature Pulse Rate 119 H 115 H 113 H Respiratory Rate 22 H 26 H Blood Pressure 169/110 H Pulse Oximetry 100 100 Oxygen Delivery Oxygen Flow Rate 09/12/25 04:30 09/12/25 04:31 09/12/25 04:45 Temperature Pulse Rate 113 H 112 H 112 H Respiratory Rate 27 H 21 H 21 H Blood Pressure 151/106 H Pulse Oximetry 98 100 Oxygen Delivery Oxygen Flow Rate 09/12/25 04:46 09/12/25 04:48 09/12/25 05:15 Temperature Pulse Rate 109 H Respiratory Rate 30 H Blood Pressure 161/110 H Pulse Oximetry 97 97 100 Oxygen Delivery Room Air Room Air Oxygen Flow Rate 09/12/25 05:19 09/12/25 06:01 09/12/25 06:16 Temperature Pulse Rate 101 H 96 95 Respiratory Rate 20 20 19 Blood Pressure 168/110 H 157/103 H 155/98 H Pulse Oximetry 100 98 99 Oxygen Delivery Oxygen Flow Rate 09/12/25 06:53 09/12/25 07:47 Temperature 98.0 F Pulse Rate 95 94 Respiratory Rate 23 H 22 H Blood Pressure 148/97 H 161/102 H Pulse Oximetry 100 100 Oxygen Delivery Oxygen Flow Rate Exam Narrative: Gen - well appearing male in no acute respiratory distress who is nontoxic- appearing lying semi recumbent in bed HEENT - normocephalic. Atraumatic. Pupils equal round and reactive. Extraocular motions intact. Sclera clear and anicteric. No oral lesions. Moist mucous membranes. Tongue was midline. No facial asymmetry. Neck - neck was supple. No dominant adenopathy, thyromegaly or masses. Chest - lungs are clear to auscultation bilaterally. No wheezes or crackles. CV - heart was regular rate and rhythm. S1-S2. No murmurs gallops or rubs. Abd - abdomen was soft. Nontender. Nondistended. Positive bowel sounds. Ext - no clubbing, cyanosis or edema. 2+ DP pulses bilaterally. Neuro - patient is alert and oriented x4. Strength is 5/5 in both upper and lower extremities. Cranial nerves 2-12 are intact. Speech is clear. Psych - Very drowsy normal mood and affect. Patient is pleasant and cooperative. Skin - warm and dry. No rashes noted. H&P: Results Labs Labs: Short CBC 09/12/25 Range/Units 04:25 WBC 5.7 (4.5-10.0) K/mm3 Hgb 13.5 L (14.0-18.0) g/dL Hct 40.7 L (42.0-52.0) % Plt Count 142 L (150-375) k/mm3 BMP 09/12/25 04:25 Sodium 139 Potassium 3.4 Chloride 105 Carbon Dioxide 25 BUN 15 Creatinine 1.10 Glucose 111 H Calcium 8.1 L Liver Function 09/12/25 Range/Units 04:25 Total Bilirubin 0.4 (0.2-1.3) mg/dL AST 24 (17-59) U/L ALT 19 (6-50) U/L Alkaline Phosphatase 72 (38-126) U/L Albumin 3.6 (3.5-5.1) g/dL Urine 09/12/25 Range/Units 04:41 Urine Color Yellow (Yellow) Urine Appearance Clear (Clear) Urine pH 5.5 (5.0-9.0) Ur Specific [place] 1.034 (1.001-1.035) Urine Protein 1+ H (Negative) mg/dL Urine Glucose (UA) Trace H (Negative) mg/dL Assessment and Plan Assessment and plan (1) New onset seizure: Code(s): R56.9 - Unspecified convulsions Status: Acute Assessment and Plan: * EKG, initial: Sinus tachycardia * Head/neck CTA: No ICA stenosis or other acute arterial abnormality. No large vessel arterial occlusive disease or other acute findings. No aneurysms. * Head CT: No acute intracranial findings * No leukocytosis, H&H stable * UA: not indicative of infection * telemetry monitoring * UDS: positive for cannabinoids * Brain MRI, Echo EEG pending * Neuro consult * Loading dose of Keppra 1500 mg in ED, continue 1000 mg b.i.d. * Seizure precautions (2) Hypertension: Code(s): I10 - Essential (primary) hypertension Status: Acute Assessment and Plan: * Patient's blood pressure was reviewed on 09/12 * Blood pressure remains well controlled * Not currently on any medications * 146/83 (3) Diabetes mellitus: Code(s): E11.9 - Type 2 diabetes mellitus without complications Status: Acute Assessment and Plan: * Hypoglycemia protocol * POC blood glucose ACHS * Home medication - Insulin lispro TIDWM * Correct regimen ordered - low dose SSI TIDWM and HS * A1C repeat pending (4) Obstructive sleep apnea syndrome: Code(s): G47.33 - Obstructive sleep apnea (adult) (pediatric) Status: Acute Assessment and Plan: * Order CPAP while inpt Quality VTE Prophylaxis VTE prophylaxis: mechanical ordered
--- NOTE | 2025-09-12 12:13 | P.CONNEU_ITS ---
Assessment and Plan Assessment and plan (1) New onset seizure: Code(s): R56.9 - Unspecified convulsions Status: Acute (2) Diabetes mellitus: Code(s): E11.9 - Type 2 diabetes mellitus without complications Status: Acute (3) Hypertension: Code(s): I10 - Essential (primary) hypertension Status: Acute (4) Obstructive sleep apnea syndrome: Code(s): G47.33 - Obstructive sleep apnea (adult) (pediatric) Status: Acute Assessment and Plan: Compliance with the CPAP needs to be emphasized and he should follow with Sleep physicians regarding this since sleep fragmentation As well as sleep deprivation can exacerbate seizures. (5) Exogenous obesity: Code(s): E66.09 - Other obesity due to excess calories Status: Acute Plan The patient was started on Keppra. He was given 1500 mg initial dose and now he is on 1000 mg twice a day brain MRI of the brain and EEG are scheduled. Seizure precautions are in place. It should be observed closely for any further recurrence of the seizures. MRI of the brain with and without contrast is recommended. Consult date: 09/12/25 HPI: Eliana Oglesby is a 35 year old Right-handed Afro-[place] male admitted to the hospital after having had a seizure-like spell at home and subsequently he had 2 more seizures witnessed by the EMS staff. His eyes were looking to the left side. At 1 time was thought to weak on the left upper and lower limb. No prior history of seizures. He also denies any history of recent febrile illness or head trauma in the last few years. He does suffer from hypertension and diabetes mellitus. He also has headache on a daily basis. States that he takes medications for the same. He was unable to tell me the name of the medication he takes for the pain. In the emergency room he had a CT scan of the brain and CT angiogram of the head and neck which did not show any significant abnormalities. Patient does not smoke or drink any alcohol. He was given intranasal midazolam the EMS staff. The urinalysis for toxicology was positive for benzodiazepine and also for cannabis. Ethyl alcohol was less than 10. At this time he is very sleepy but arousable and does communicate. His serum glucose on admission was 111. Electrolytes liver enzymes were normal. Kidney functions normal. Lactic acid level was high which has now become normal. CBC did not show any significant abnormalities. Cell count was normal. Review of Systems 2 Review of Systems: Patient denies any shortness of breath or chest pain or palpitation. Prior warning to the spells he had. He did bite his tongue. I am not sure whether he wet his pants also during the spell Of seizure All systems reviewed & are unremarkable except as noted in HPI and below PMFSH Past Medical History Medical History (Updated 09/12/25 @ 12:21 by Rayray Castrejon MD) Exogenous obesity Obstructive sleep apnea syndrome Hypertension Diabetes mellitus Family History Family History (Updated 09/12/25 @ 07:35 by Radha Donaldson RN) Mother Diabetes mellitus Hypertension Social History Social History Smoking status: Never smoker Alcohol intake: current Drinks per week: 1 Substance use: current Substance use type: marijuana Last use: 09/11/25 Spiritual care concerns: No Meds Home Medications and Allergies Home Medications ?Medication ?Instructions ?Recorded ?Confirmed ?Type insulin lispro 200 unit/mL (3 mL) 1 sliding scale dose subcut 09/12/25 09/12/25 History subcutaneous pen (Humalog KwikPen TIDWMEAL U-200 Insulin) tirzepatide 15 mg/0.5 mL 15 mg subcut WEEKLY 09/12/25 09/12/25 History subcutaneous pen injector (Mounjaro) Allergies Allergy/AdvReac Type Severity Reaction Status Date / Time No Known Allergies Allergy Verified 09/12/25 07:21 Vital Signs Vital Signs - 24 hr 09/12/25 03:46 09/12/25 03:46 09/12/25 03:58 Temperature 98.6 F Pulse Rate 131 H Respiratory Rate 23 H Blood Pressure 166/103 H Pulse Oximetry 100 100 100 Oxygen Delivery Non-Rebreather Mask Non-Rebreather Mask Non-Rebreather Mask Oxygen Flow Rate 15 15 15 09/12/25 04:15 09/12/25 04:25 09/12/25 04:26 Temperature Pulse Rate 119 H 115 H 113 H Respiratory Rate 22 H 26 H Blood Pressure 169/110 H Pulse Oximetry 100 100 Oxygen Delivery Oxygen Flow Rate 09/12/25 04:30 09/12/25 04:31 09/12/25 04:45 Temperature Pulse Rate 113 H 112 H 112 H Respiratory Rate 27 H 21 H 21 H Blood Pressure 151/106 H Pulse Oximetry 98 100 Oxygen Delivery Oxygen Flow Rate 09/12/25 04:46 09/12/25 04:48 09/12/25 05:15 Temperature Pulse Rate 109 H Respiratory Rate 30 H Blood Pressure 161/110 H Pulse Oximetry 97 97 100 Oxygen Delivery Room Air Room Air Oxygen Flow Rate 09/12/25 05:19 09/12/25 06:01 09/12/25 06:16 Temperature Pulse Rate 101 H 96 95 Respiratory Rate 20 20 19 Blood Pressure 168/110 H 157/103 H 155/98 H Pulse Oximetry 100 98 99 Oxygen Delivery Oxygen Flow Rate 09/12/25 06:53 09/12/25 07:47 09/12/25 11:39 Temperature 98.0 F 98.2 F Pulse Rate 95 94 105 H Respiratory Rate 23 H 22 H 20 Blood Pressure 148/97 H 161/102 H 146/83 H Pulse Oximetry 100 100 100 Oxygen Delivery Oxygen Flow Rate Exam 2 Const: General: cooperative, healthy appearing and comfortable HENMT: Head: atraumatic Mouth: Yes oropharynx normal Other: excessive tissue noted in oropharynx with Mallampati score of 4/4. Patient has history of obstructive sleep apnea syndrome although he claimed compliance but later I was told that he does not use CPAP regularly. Eyes: Alignment and Position: alignment normal and position normal Pupils: Equal, round and reactive pupils present EOM: EOMs intact bilaterally Neck: Neck: normal visual inspection and supple Resp: Effort & Inspection: normal respiratory effort Cardio: Heart sounds: S1 normal heart sound present and S2 normal heart sound present Skin: General skin exam: normal color Neuro: Cranial nerves: Yes CN's II-XII intact bilaterally, Yes facial symmetry and Yes Midline tongue present Cognition (Neuro): normal cognition Speech: normal speech Sensory Exam: normal sensation Coordination: [id number] test normal and Normal rapid alternating movements of the distal upper extremity present (Neuro) Extrem: General: normal to inspection Psych: Other: The patient is drowsy and falls back to sleep very easily. Results Labs 09/12/25 04:25 09/12/25 04:25 Labs: Short CBC 09/12/25 Range/Units 04:25 WBC 5.7 (4.5-10.0) K/mm3 Hgb 13.5 L (14.0-18.0) g/dL Hct 40.7 L (42.0-52.0) % Plt Count 142 L (150-375) k/mm3 BMP 09/12/25 04:25 Sodium 139 Potassium 3.4 Chloride 105 Carbon Dioxide 25 BUN 15 Creatinine 1.10 Glucose 111 H Calcium 8.1 L Liver Function 09/12/25 Range/Units 04:25 Total Bilirubin 0.4 (0.2-1.3) mg/dL AST 24 (17-59) U/L ALT 19 (6-50) U/L Alkaline Phosphatase 72 (38-126) U/L Albumin 3.6 (3.5-5.1) g/dL Urine 09/12/25 Range/Units 04:41 Urine Color Yellow (Yellow) Urine Appearance Clear (Clear) Urine pH 5.5 (5.0-9.0) Ur Specific [place] 1.034 (1.001-1.035) Urine Protein 1+ H (Negative) mg/dL Urine Glucose (UA) Trace H (Negative) mg/dL Imaging Attestation: I personally reviewed and interpreted this imaging study as follows: ( CT scan of brain and CT angiogram of the head and neck) My impression: no significant abnormal findings were noted. Radiologist's impression: Same
[2025-09-12] MEDS: ONDANSETRON INJ 4 MG/2 ML VIAL IV PUSH ×3 (12:24→20:50)
[2025-09-12 13:52] LABS: Hemoglobin A1C 5.9 % (<5.7)
[2025-09-12] MEDS: PERFLUTREN LIPID MICROSPHERES 1.5 ML VIAL DILUTED TO 10 ML TOTAL VOLUME IV PUSH (14:49)
--- NOTE | 2025-09-12 14:49 | IVDEFINITY ---
Prior to administration of IV Definity the patient was educated on the risks and benefits of the imaging enhancing agent including potential adverse side effects. The patient verbalized understanding. Allergies were verified. No exclusion criteria were identified and at least one of the following inclusion criteria were met: 1) physician request, 2) patient technically difficult to image (per the [place] Society of Echocardiography guidelines of two or more segments not discernable within the apical view), or 3) questionable left ventricular function. ?
--- NOTE | 2025-09-12 14:50 | PCNEURO ---
patient was getting ECHO done when entering room.
--- NOTE | 2025-09-12 15:09 | PCCDE ---
09/12/25: intial attempt pharmacy they were out to lunch: Reattemted later. I reached [facility]'s pharmacy ([facility] - [phone]) they only had TDD insulin Pharmacist provided Endo name /number = Oracio Vela (at [facility]) - [phone] Message left including my call back number as well as IMU # with request for home insulin regimen.
[2025-09-13] VITALS (12 sets, daily range): BP systolic 115–176; BP diastolic 72–110; PULSE 82–108; RESP 16–22; TEMP 36.9–37.4; O2SAT 97–98
[2025-09-13] MEDS: IBUPROFEN 400 MG TABLET 800 MG PO (00:34)
[2025-09-13 04:42] LABS: Hematocrit 40.7 % (42.0-52.0); Hemoglobin 13.7 g/dL (14.0-18.0); Immature Granulocyte Percent A 0.1 % (0-0.5); Lymphocytes Absolute Auto 2.20 K/mm3 (0.9-3.2); Mean Corpuscular HGB Conc 33.7 g/dl (32-36); Mean Corpuscular Hemoglobin 28.5 pg (26-34); Mean Corpuscular Volume 84.6 fl (80-100); Nucleated Red Blood Cells Absolute Auto 0.000 K/mm3 (0.0-0.012); Nucleated Red Blood Cells Perc 0.0 % (0.0-0.2); Platelet Count Result 159 k/mm3 (150-375); Red Blood Count 4.81 M/mm3 (4.6-6.20); White Blood Count 7.8 K/mm3 (4.5-10.0)
[2025-09-13 05:10] LABS: Alanine Aminotransferase 16 U/L (6-50); Albumin Level 3.7 g/dL (3.5-5.1); Alkaline Phosphatase 81 U/L (38-126); Anion Gap 6 mmol/L (4-12); Aspartate Amino Transferase 25 U/L (17-59); Bilirubin,Total 0.7 mg/dL (0.2-1.3); Blood Urea Nitrogen 9 mg/dL (9-20); Calcium 8.2 mg/dL (8.4-10.2); Carbon Dioxide 27 mmol/L (22-30); Chloride 103 mmol/L (98-107); Estimated CRCL calculation 128 ml/min; Estimated Glomerular Filt Rate > 60; Glucose 112 mg/dL (65-110); Potassium 3.1 mmol/L (3.4-5.0); Sodium 136 mmol/L (137-145); Total Protein 7.1 g/dL (6.3-8.2)
[2025-09-13] MEDS: POTASSIUM CHLORIDE 20 MEQ ER TABLET 40 MEQ PO (09:14)
--- NOTE | 2025-09-13 13:17 | WPDNEUROLOGY ---
Neurology EEG Report General Information Date of Study: 09/13/25 TEST eeg DIAGNOSIS seizures CONDITION OF RECORDING awake, drowsy and asleep EEG NUMBER [id number] CLINICAL HISTORY 35 years old male who had a seizure-like spell at home and possibly 2 more witnessed by EMS. His eyes were looking to the left side. At 1 time was thought to be weak on the left upper and left lower extremity. During tracing and recording, patient's left upper extremity was consistently jerking. EEG DESCRIPTION Low-voltage beta activity seen admixed with low-voltage 9 to 11 hertz per 2nd alpha posteriorly along with the multiple movement artifacts. Hyperventilation produced normal buildup but again compromised by the multiple movement artifacts. Bilateral sleep activities noted again compromised by movement artifacts. Hyperventilation produced fairly symmetrical buildup and photic stimulation produced normal drive. Non paroxysmal. Nonfocal. Nonlateralizing. IMPRESSION Probably normal record but considering the amount of movement artifacts clinical correlation recommended this particular tracing is not diagnostic of seizure disorder.
--- NOTE | 2025-09-13 14:31 | P.DS_ITS ---
DS: Admitting Diagnosis Discharge Date 09/13/2025 Admitting Diagnosis New onset seizure DS: Discharge Diagnosis Discharge Diagnosis (1) New onset seizure: Code(s): R56.9 - Unspecified convulsions Status: Acute Assessment and Plan: * EKG, initial: Sinus tachycardia * Head/neck CTA: No ICA stenosis or other acute arterial abnormality. No large vessel arterial occlusive disease or other acute findings. No aneurysms. * Head CT: No acute intracranial findings * No leukocytosis, H&H stable * UA: not indicative of infection * telemetry monitoring * UDS: positive for cannabinoids * Brain MRI, Echo EEG pending * Neuro consult * Loading dose of Keppra 1500 mg in ED, continue 1000 mg b.i.d. * Seizure precautions (2) Hypertension: Code(s): I10 - Essential (primary) hypertension Status: Acute Assessment and Plan: * Patient's blood pressure was reviewed on 09/12 * Blood pressure remains well controlled * Not currently on any medications * 146/83 (3) Diabetes mellitus: Code(s): E11.9 - Type 2 diabetes mellitus without complications Status: Acute Assessment and Plan: * Hypoglycemia protocol * POC blood glucose ACHS * Home medication - Insulin lispro TIDWM * Correct regimen ordered - low dose SSI TIDWM and HS * A1C repeat pending (4) Obstructive sleep apnea syndrome: Code(s): G47.33 - Obstructive sleep apnea (adult) (pediatric) Status: Acute Assessment and Plan: * Order CPAP while inpt DS: Summary Hospital Course Reason for hospitalization: Seizure-like activity Hospital Course: Per HPI: Eliana Oglesby is a 35-year-old male with a past medical history of HTN and T2DM who presents to the hospital with seizure like activity. Patient is accompanied by who states that the patient got up to go to the bathroom in the middle the night last night but was found walking remains not acting like himself. states that he was in the bathroom leaning on the counter staring off into space and he had his right flexed. She also states that the right side of his face was unresponsive and was drooling. EMS was subsequently called and patient was witnessed having a generalized tonic clonic seizure that lasted 1-2 minutes in the ambulance. He was given 10 mg of Versed and was subsequently transferred to the hospital. Patient another seizure while in the emergency department with left lateral gaze deviation and nonreactive pupils and was given another 5 mg of Versed. No history of prior seizures, no signs of trauma. Denies any recent travel, illnesses or hospitalizations. states that there were several deaths in the family within the past 2 weeks and that they have been under immense stress recently. ED workup: 37? C, heart rate 96, respiratory rate 20, 98% on room air, 157/103 WBC 5.7, Hgb 13.5, Hct 40.7, Plt 142, Na 139, K 3.4, BUN 15, Cr 1.10, Glucose 119, Lactic acid 4.1, LFTs wnl, tsh wnl UA: Not indicative of UTI Head CT: No acute intracranial findings CTA head/neck: No ICA stenosis or other acute arterial abnormality, no large vessel arterial occlusive disease, aneurysms or other acute findings EKG: Sinus tachycardia, nonspecific ST and T-wave abnormality Hospital course: This is a 35-year-old male with a history of hypertension, type 2 diabetes mellitus, exogenous obesity, and obstructive sleep apnea who was admitted for evaluation of new-onset seizure activity. The patient experienced a witnessed episode at home characterized by altered behavior, right arm flexion, right facial droop, and drooling, followed by a generalized tonic-clonic seizure en route to the hospital and another seizure in the emergency department with left gaze deviation and nonreactive pupils. There is no prior seizure history. Initial workup, including head CT and CTA of the head and neck, was unremarkable for acute intracranial pathology or vascular abnormality. Laboratory studies were notable for mild thrombocytopenia, mild hypokalemia, and low calcium, but were otherwise unremarkable. Urine toxicology was positive for cannabinoids and benzodiazepines (administered by EMS), and there was no evidence of infection or significant metabolic derangement. The patient was started on levetiracetam (Keppra) and placed on seizure precautions. Neurology was consulted, and an EEG was performed on 09/13/25. During the EEG, the patient was recorded in awake, drowsy, and asleep states. The tracing was notable for persistent left upper extremity jerking, but the study was significantly compromised by movement artifacts. The background rhythm showed low-voltage beta activity mixed with low-voltage posterior alpha, and both hyperventilation and photic stimulation produced normal responses. No paroxysmal, focal, or lateralizing features were identified. The overall impression was that the EEG was probably normal, but due to the extensive movement artifact, the study was not diagnostic for seizure disorder, and clinical correlation was recommended. At the time of reevaluation on 09/13, the patient was alert and oriented and much more awake than yesterday, with no focal neurological deficits on exam. He was continued on antiepileptic therapy, brain mri showed no evidence of acute ischemia or intracranial bleed, no ventriculomegaly or midline shift. No space- occupying lesions are seen. Management also included optimization of his comorbid conditions, including diabetes, hypertension, and obstructive sleep apnea, with emphasis on CPAP compliance given the potential for sleep deprivation to lower seizure threshold. The patient was observed for further seizure activity and remained on telemetry monitoring. To hospitalization, patient did not appear to have any further seizure-like activity. Glucose levels have remained stable throughout hospitalization as well on a moderate sliding scale insulin. Discussed with neurologist we agreed that discharge is appropriate at this time. Recommend continuing Keppra 750 mg twice daily and follow a neurologist in the outpatient setting. Will recommend no driving for the next 6 months or until patient can be cleared by neurologist. Patient is otherwise hemodynamically stable for discharge at this time. Physical exam, blood in vital signs remained stable and patient is amenable to discharge. Plan for discharge home at this time. Status at Discharge Functional status at discharge: independent ambulation Overall status at discharge: patient is back to baseline Time Spent with Patient Time attestation: Total time spent providing and/or coordinating discharge services: Time spent: Greater than 30 minutes Exam Narrative: Gen - well appearing male in no acute respiratory distress who is nontoxic- appearing lying semi recumbent in bed HEENT - normocephalic. Atraumatic. Pupils equal round and reactive. Extraocular motions intact. No oral lesions. Moist mucous membranes. Tongue was midline. No facial asymmetry. Neck - neck was supple. No dominant adenopathy, thyromegaly or masses. Chest - lungs are clear to auscultation bilaterally. No wheezes or crackles. CV - heart was regular rate and rhythm. S1-S2. No murmurs gallops or rubs. Abd - abdomen was soft. Nontender. Nondistended. Positive bowel sounds. Ext - no clubbing, cyanosis or edema. 2+ DP pulses bilaterally. Neuro - patient is alert and oriented x4. Strength is 5/5 in both upper and lower extremities. Cranial nerves 2-12 are intact. Speech is clear. Psych -much more alert today, normal mood and affect. Patient is pleasant and cooperative. Skin - warm and dry. No rashes noted. DS: Data Data Completed and Pending Labs on day of discharge: Labs from last 24 hours 09/13/25 09/13/25 09/13/25 11:04 07:20 03:54 WBC 7.8 RBC 4.81 Hgb 13.7 L Hct 40.7 L MCV 84.6 MCH 28.5 MCHC 33.7 RDW 14.4 Plt Count 159 MPV 9.6 Immature Gran % (Auto) 0.1 Neut % (Auto) 61.2 Lymph % (Auto) 28.3 Wayne % (Auto) 9.9 H Eos % (Auto) 0.4 Baso % (Auto) 0.1 L Lymph # (Auto) 2.20 Wayne # (Auto) 0.8 H Eos # (Auto) 0.0 Baso # (Auto) 0.0 Abs Immat Gran (auto) 0.01 Absolute Neuts (auto) 4.8 Absolute Nucleated RBC 0.000 Nucleated RBC % 0.0 Sodium 136 L Potassium 3.1 L Chloride 103 Carbon Dioxide 27 Anion Gap 6 BUN 9 D Creatinine 0.96 Estim Creat Clear Calc 128 Estimated GFR > 60 Glucose 112 H POC Capillary Glucose 176 H 111 H Calcium 8.2 L Total Bilirubin 0.7 AST 25 ALT 16 Alkaline Phosphatase 81 Total Protein 7.1 Albumin 3.7 09/12/25 09/12/25 20:27 15:08 WBC RBC Hgb Hct MCV MCH MCHC RDW Plt Count MPV Immature Gran % (Auto) Neut % (Auto) Lymph % (Auto) Wayne % (Auto) Eos % (Auto) Baso % (Auto) Lymph # (Auto) Wayne # (Auto) Eos # (Auto) Baso # (Auto) Abs Immat Gran (auto) Absolute Neuts (auto) Absolute Nucleated RBC Nucleated RBC % Sodium Potassium Chloride Carbon Dioxide Anion Gap BUN Creatinine Estim Creat Clear Calc Estimated GFR Glucose POC Capillary Glucose 100 123 H Calcium Total Bilirubin AST ALT Alkaline Phosphatase Total Protein Albumin Discharge Plan Discharge Attending physician on discharge: Tyson Hall Consulting providers: Rayray Castrejon; Prabhu Lazcano Discharging Clinician: Prabhu Lazcano Anticipated Discharge Date/Time: 09/13/25 14:21 Patient Disposition: Home Activity: no driving and as tolerated Diet: diabetic Discharge Instructions: Discharge disposition: Home Take medications as prescribed. You will be prescribed Keppra 750mg to be taken twice daily. You will be referred to a neurologist - call their office to schedule an appointment in the outpatient setting You will be restricted from driving for the next 6 months or until cleared by a neurologist. Monitor blood pressures Take caution while standing, rising, or moving Change positions slowly taking a break between each position change If you standing feel dizzy sit back down and take a break Encouraged to continue with yearly vaccinations Return to the emergency department if you develop sudden shortness of breath, chest pain, nausea, vomiting, upset stomach or intractable diarrhea Return to the emergency department if you develop fever greater than 101.5 Follow-up with the primary care physician within 1-2 weeks Follow up with your regional extension service specialist for possible adjustment of your insulin pump Thank you for choosing [facility] for your healthcare needs Patient Instructions: Antibiotic Form, Levetiracetam (By mouth), New-Onset Seizure in Adults (GEN) Patient Language: Romansh Stand Alone Forms: General Discharge Information Follow-up/Referrals: Rayray Castrejon MD [Physician, Neurology] - Call for Appointment Juvencio,MD Rudy [Primary Care Provider, Unknown] Discharge Medications: New levetiracetam [Keppra] 500 mg Tablet 750 mg PO Q12HR Qty: 60 0RF Continued Mounjaro 15 mg/0.5 mL pen injector 15 mg SUBCUT WEEKLY Patient Comments: Sundays Humalog KwikPen Insulin 200 unit/mL (3 mL) insulin pen 1 sliding scale dose SUBCUT TIDWMEAL Patient Comments: sliding scale Date of admission: 09/12/25 06:19 Primary Care Provider: JuvencioRudy Admitting Provider: Ramila Chavarria Attending physician on admission: Ramila Chavarria Condition: Stable Quality VTE Prophylaxis VTE prophylaxis: mechanical ordered
== END 2025-09-13 16:30 | disposition home or self-care (01) ==
LOC: ANHED 06:31 → ANHIMU 08:14
PROVIDERS: Physician Assistant; Admitting Provider Internal Medicine; Emergency Provider Student in an Organized Health Care Education/Training Program; PCP Family Medicine; Visit Provider Internal Medicine
DX: R56.9 Unspecified convulsions (principal); I10 Essential (primary) hypertension; E11.9 Type 2 diabetes mellitus without complications; G47.33 Obstructive sleep apnea (adult) (pediatric); Z79.4 Long term (current) use of insulin; Z79.85 Long-term (current) use of injectable non-insulin antidiabetic drugs; E66.09 Other obesity due to excess calories; Z68.41 Body mass index [BMI] 40.0-44.9, adult
CPT/HCPCS: 36415; 70450; 70496; 70498; 70551; 73552; 80053; 80143; 80179; 80307; 81001; 82077; 82948; 83036; 83605; 84443; 85025; 93005; 95816; 96361; 96374; 96375; 96376; 99285; A9270; C8929; G0378; J1953; J2250; J2405; J7120; Q9957; Q9967

== ENCOUNTER 2025-09-21 22:55 | Emergency (ER) | payer SELFPAY ==
--- OUTSIDE RECORDS SUMMARY | 2020-03-09 08:15 | XMS_ITS | Continuity of Care Document ---
Author Organization [facility], L TD Address [address] [place] [address] Phone Care Team Providers Care Pecan Grower Name Role Phone Oberreiter OD, Renetta Unavailable Unavailabl e Allergies, Adverse Reactions, Alerts Substance Reaction Status Criticality No Known Allergies Active No Inform ation Medications Medication Instructions Dosage Effective Dates (start - stop) Status Comments ofloxacin 0.3 % eye drops instill 1 drop by ophthalmic route 3 times every day OD x 1 week - Active amlodipine 5 mg tablet take 1 tablet by oral route every day 5 MG - Active atorvastatin 80 mg tablet take 1 tablet by oral route every day 80 MG - Active chlorthalidone 25 mg tablet take 1 tablet by oral route every day 25 MG - Active furosemide 40 mg tablet take 1 tablet by oral route every day 40 MG - Active gabapentin 400 mg capsule take 3 capsule by oral route 3 times every day 1200 MG - Active LEVEMIR (unknown strength) inject 30 units by subcutaneous route per prescriber's instructions. Insulin dosing requires individualization. Not Available - Active lisinopril 10 mg tablet take 1 tablet by oral route every day 10 MG - Active metformin ER 1,000 mg tablet,extended release 24hr take 1 tablet by oral route 2 times every day with the evening meal 1000 MG - Active Novolog Flexpen U-100 Insulin aspart 100 unit/mL (3 mL) subcutaneous inject 3 times a day by subcutaneous route per prescriber's instructions. Insulin dosing requires individualization. - Active sertraline 50 mg tablet take 1 tablet by oral route every day 50 MG - Active Symbicort 80 mcg-4.5 mcg/actuation HFA aerosol inhaler inhale 2 puff by inhalation route 2 times every day in the morning and evening 2.00 puff - Active tramadol 50 mg tablet take 1 tablet by oral route every 6 hours as needed 50 MG - Active Procedures Procedure Date REMOVE FOREIGN BODY CORNEAL, EMBEDDED Ma EYE EXAM NEW PATIENT Advance Directives Directive Yes / No Effective Date File Name No Information Encounters Encounter Description Practice Location Reason(s) For Visit Diagnoses Date Provider Providers Copied on Encounter [facility], [facility], [facility] [place], [place], [id number], [place] tel:[phone] [facility] foreign body sensation (chief complaint) Foreign body in cornea, right eye, initial encounter Ghislaine Jackson. [address] , [place], [place], [address], [place]. tel:[phone] Family History Family Member Type Diagnosis Age At Onset Problem No family history of Macular degeneration Father Problem Diabetes mellitus Mother Problem hypertension Problem No family history of Glaucom a Problem No family history of Catarac ts Mother Problem Diabetes mellitus Payers Payer name Insurance type Covered libertarian ID Franciscaita duarte(s) [facility] [id number] Social History Type Description Quantity Date Captured Comments Alcohol Use Details Unknown Caffeine Use Details Unknown Tobacco Use Status Current non-smoker 20 Smoking Status Never smoker Non-Smoking Tobacco Use Details : No Details Available : No Details Available Sex Male Chief Complaint And Reason For Visit From encounter dated '03/09/2020 14:15'. foreign body sensation (chief complaint). Description: The 29 Year old male presents with foreign body sensation in the right eye. Pt reports he was grinding metal when he felt something go under hissafety glasses. It started about 2 day(s) ago. It affects both near and far vision OD. OS vision isgood and stable. The patient denies COVID-19 symptoms - temperature normal. Pt doesn't use any eye meds or gtts. Reason For Referral Reason For Referral No Information History Of Present Illness Encounter Date Complaint History Of Prese nt Illness foreign body sensation The 29 Ye ar old male presents with foreign body sensation in the right eye. Pt reports he was grinding metal when he felt something go under his safety glasses. It started about 2 day(s) ago. It affects both near and far vision OD. OS vision is good and stable. The patient denies COVID-19 symptoms - temperature normal. Pt doesn't use any eye meds or gtts. Functional Status Date Functional Assessmen t No Information Instructions Date Instruction Additional Infor mation Impression/Plan Assessments Type Assessment Date assessment Foreign body in cornea, right ey e, initial encounter Patient Care Teams Name Effective Dates (start - stop) Status Members No Information
--- OUTSIDE RECORDS SUMMARY | 2025-07-21 11:27 | XMS_ITS | Continuity of Care Document ---
Author Organization [employer] [place] Address [address] [place] [address] [address] [place] [address] Phone Care Team Providers Care Food Concession Manager Name Role Phone Ran Crowley PT Unavailable [...] Therapy Hot or Cold Pack Therapeutic Activities Therapeutic Exercise Neuromuscular Re-Ed Manual Therapy Hot or Cold Pack Therapeutic [...] Diagnoses Date Provider Providers Copied on Encounter [facility] [employer], [place], [place], [address], tel:[phone] [place] No Information 5 Keo Acosta . [facility], [place], [place], [address], tel:[phone] [place] No Information 5 Keo Tong. . Referring Provider: Physician Zurdo. [facility], [address], [place], [place], [address], [place] tel:[phone] [place] No Information 5 Keo Tong. . Referring Provider: Mary Gagnon, [address], [place], [address]. tel:[phone] [place] [address] [address], [place], [place], [address], [place] tel:[phone] [place] No Information 5 Zev Roland. . Referring Provider: Mary Gagnon [address], [place], [address]. tel:[phone] [place] [address] [place], [place] [address], [place], [place], [address], [place] tel:[phone] [place] No Information 5 Keo Tong. . Referring Provider: Physician Zurdo. [facility], [address] [facility], [place], [place], [address], [place] tel:[phone] [place] No Information 5 Keo Tong. . Referring Provider: Physician Zurdo. [facility] [facility], [place], [place], [address], tel:[phone] [place] No Information 5 Keo Tong. . Referring Provider: Mary Gagnon [address], [place], [address]. tel:[phone] [facility], [place], [place], [address], [place] tel:[phone] [place] No Information 0 5 Sonia Andrade. . Referring Provider: Mary Gagnon [address], [place], [address]. tel:[phone] [facility], [place], [place], [address], [place] tel:[phone] [place] No Information 0 5 Keo Ran. . Referring Provider: Mary Gagnon [address], [place], [address]. tel:[phone] [facility], [place], [place], [address], [place] tel:[phone] [place] No Information Sep-0 5 Keo Ran. . Referring Provider: Mary Gagnon [address], [place], [address]. tel:[phone] [facility], [place], [place], [address], [place] tel:[phone] [place] No Information 5 Keo Pavonon. . Referring Provider: Mary Gagnon [address], [place], [address]. tel:[phone] [facility], [place], [place], [address], [place] tel:[phone] [place] No Information 5 Keo Pavonon. . Referring Provider: Mary Gagnon [address], [place], [address]. tel:[phone] [facility], [place], [place], [address], [place] tel:[phone] [place] No Information 5 Sudhakar Jonas [address] [place] [address], [address], [place], [address], [place]. tel: [phone] Referring Provider: Mary Gagnon [address], [place], [address]. tel:[phone] [facility], [place], [place], [address], tel:[phone] [place] No Information 5 Keo Ran. . Referring Provider: Mary Gagnon, [address], [place], [address]. tel:[phone] [place] [address], [address] [facility], [place], [place], [address], tel:[phone] [place] No Information 5 Keo Ran. . Referring Provider: Mary Gagnon [address], [place], [address]. tel:[phone] [place] [address], [address] [facility], [place], [place], [address], tel:[phone] [place] No Information 5 Keo Ran. . Referring Provider: Physician Renner. [facility], [address] [facility] [address], [place], [place], [address], tel:[phone] [place] No Information 5 Keo Ran. . Referring Provider: Mary Gagnon [address], [place], [address]. tel:[phone] [place] [address] [facility], [place], [place], [address], tel:[phone] [place] No Information 5 Keo Ran. . Referring Provider: Mary Gagnon [address], [place], [address]. tel:[phone] [place], [place] [address], [place], [place], [address], [place] tel:[phone] [place] No Information 4 Keo Ran. . Referring Provider: Mary Gagnon [address], [place], [address]. tel:[phone] [place], [place] [address], [address], [place], [place], [address], [phone] [place] No Information 4 Keo Tong. . Referring Provider: Vincent Fernando[address], [place], [address]. tel:[phone] [facility], [address], [place], [place], [address], tel:[phone] [place] No Information 4 Keo Tong. . Referring Provider: Mary Gagnon [address], [place], [address]. tel:[phone] Family History Family Member Type Diagnosis Age At Onset No Information Payers Payer name Insurance type Covered green party ID rowan duarte(s) [facility] [id number] Social History Type Description Quantity Date Captured [...]
--- NOTE | 2025-09-21 23:43 | ED.MALEGU ---
HPI - Male Genitourinary General Chief complaint: Urogenital-Male Stated complaint: R sided groin pain Time Seen by Provider: 09/21/25 23:05 Source: patient Mode of arrival: ambulatory Limitations: no limitations History of Present Illness HPI Narrative: Patient is a 35-year-old male presents to the emergency department noting that he was contacted by sexual partner if his who told him to come get checked. Does not know what infection the sexual partner has, did not get much of any further information. Patient denies any history of sexually transmitted infections. Patient denies any penile discharge. Patient denies any testicular pain or swelling. Patient denies any dysuria, urinary urgency. Patient is to chronic urinary frequency due to his diabetes. Patient has some mild right groin discomfort throughout the day today. Patient denies any injuries. Patient denies any focal weakness or numbness. Patient denies any rashes. Related Data Home Medications ?Medication ?Instructions ?Recorded ?Confirmed ?Last Taken ?Type insulin lispro 200 unit/mL (3 mL) 1 sliding scale dose subcut 09/12/25 09/19/25 Unknown History subcutaneous pen (Humalog KwikPen TIDWMEAL U-200 Insulin) tirzepatide 15 mg/0.5 mL 15 mg subcut WEEKLY 09/12/25 09/19/25 09/04/25 History subcutaneous pen injector (Jennifer) aspirin 81 mg tablet 81 mg PO DAILY 09/19/25 09/19/25 Unknown History cyclobenzaprine 10 mg tablet 10 mg PO TID 09/19/25 09/19/25 Unknown History gabapentin 400 mg capsule 400 mg PO DAILY 09/19/25 09/19/25 Unknown History hydralazine 50 mg tablet 50 mg PO TID 09/19/25 09/19/25 Unknown History lisinopril 40 mg tablet 40 mg PO DAILY 09/19/25 09/19/25 Unknown History meloxicam 15 mg tablet 15 mg PO DAILY 09/19/25 09/19/25 Unknown History metformin 1,000 mg tablet 1,000 mg PO DAILY 09/19/25 09/19/25 Unknown History metoprolol succinate 25 mg 25 mg PO DAILY 09/19/25 09/19/25 Unknown History tablet,extended release 24 hr rosuvastatin 10 mg tablet 10 mg PO DAILY 09/19/25 09/19/25 Unknown History Allergies Allergy/AdvReac Type Severity Reaction Status Date / Time No Known Allergies Allergy Verified 09/19/25 15:03 Review of Systems Review of Systems: A 10 system review of systems was completed on the patient and is negative except for what is stated in the HPI. Nursing and ancillary documentation was reviewed. [facility] Past Medical History Medical History Exogenous obesity Obstructive sleep apnea syndrome Hypertension Diabetes mellitus Family History Family History Mother Diabetes mellitus Hypertension Social History Social History Smoking status: Never smoker Alcohol intake: current Drinks per week: 1 Substance use: current Substance use type: marijuana Last use: 09/11/25 Spiritual care concerns: No Exam Narrative: CONST: No acute distress. Well nourished. HENMT: Head is normocephalic and atraumatic. Moist mucous membranes. No posterior oropharynx erythema. EYES: No scleral icterus. No conjunctival injection or pallor. PERRL. NECK: No meningeal signs. RESP: Able to speak in full sentences. Normal respiratory effort. CTAB. CARDIO: Regular rate. Regular rhythm. 2+ DP and radial pulses bilaterally. GI: Nondistended. No tenderness to palpation. Soft. : No CVA tenderness to palpation. Genitourinary region is without any ulcers or lesions. No penile discharge. No penile or scrotal or testicular tenderness to palpation or swelling. No tenderness to palpation of the epididymis bilaterally. Palpable varicocele or hydrocele. No palpable hernias. No tenderness to palpation throughout. No palpable inguinal lymphadenopathy. SKIN: No rashes or lesions noted on exposed skin. NEURO: Oriented x3. Moves all extremities. EXTREM/MSK/BACK: No pedal edema. PSYCH: Normal affect. Course Vital Signs Vital signs: Vital Signs Temperature 97.8 F 09/22/25 00:45 Pulse Rate 70 09/22/25 00:45 Respiratory Rate 20 09/22/25 00:45 Blood Pressure 138/76 09/22/25 00:45 Pulse Oximetry 99 09/22/25 00:45 Oxygen Delivery Room Air 09/22/25 00:45 Temperature 97.8 F 09/22/25 00:45 Pulse Rate 70 09/22/25 00:45 Respiratory Rate 20 09/22/25 00:45 Blood Pressure 138/76 09/22/25 00:45 Pulse Oximetry 99 09/22/25 00:45 Oxygen Delivery Room Air 09/22/25 00:45 [facility] Narrative Medical decision making narrative: Patient presents with the above complaint. Initial vitals are remarkable for no significant abnormalities. Physical examination as noted above. Plan discussed: STI testing for chlamydia and gonorrhea and Trichomonas, urinalysis, reassess. Patient was reassessed at the bedside. No changes in physical exam. Patient is in no acute distress. The patient has remained stable throughout the entire ED visit. Counseled patient regarding diagnostic results and potential diagnosis. Anticipatory guidance provided. Patient instructed to follow up with primary care physician in 3 days. Patient counseled on: false reassurance from an emergency department evaluation; no current evidence of a medical emergency; return immediately for any new, recurrent, worsening, concerning, or refractory symptoms. Patient prescribed Keflex. Prescription sent to preferred pharmacy. Medications discussed with patient. Additional verbal and printed discharge instructions were given and discussed with the patient. Patient verbally acknowledges understanding of condition and discharge instructions. All questions were answered to the patient's satisfaction. Patient is in agreement with the plan of care. The patient is stable for discharge and was discharged without incident. Differential Diagnosis Differential Diagnosis: Exposure to a sexually transmitted infection, UTI. Lab Data [facility] Lab Attestation statement: I personally reviewed the patient's lab results. Lab results narrative: Urinalysis reveals 2+ protein, trace ketones, 1+ leukocyte esterase, 21-50 wbc's, trace bacteria. Chlamydia and gonorrhea and Trichomonas testing are negative. Labs: Lab Results 09/21/25 Range/Units 23:52 Urine Color Yellow (Yellow) Urine Appearance Clear (Clear) Urine pH 5.0 (5.0-9.0) Ur Specific [place] 1.027 (1.001-1.035) Urine Protein 2+ H (Negative) mg/dL Urine Glucose (UA) Negative (Negative) mg/dL Urine Ketones Trace H (Negative) mg/dL Ur Blood (Man) Negative (Negative) Urine Nitrate Negative (Negative) Urine Bilirubin Negative (Negative) Urine Urobilinogen 0.2 (<2.0) mg/dL Leukocyte Esterase Rfl 1+ H (Negative) JOI/UL Urine RBC 0-2 (0-2) /hpf Urine WBC 21-50 H (0-3) /hpf Ur Squamous Epith Cells None seen (Few) /hpf Urine Bacteria Trace /hpf Urine Casts 0-2 C. trachomatis (PCR) Not detected (NOT DETECTE) N. gonorrhoeae (PCR) Not detected (NOT DETECTE) T. vaginalis (PCR) Not detected (NOT DETECTE) Discharge Plan Discharge Clinical Impression: Possible exposure to STI, Acute UTI Patient Disposition: Home Condition: Stable Instructions: Antibiotic Form, Sexually Transmitted Diseases (ED), Male Condom Use (ED), Safe Sex Practices (ED), Urinary Tract Infection in Men (ED) Additional Instructions: Take the antibiotics as prescribed to completion. Follow-up with your primary care physician in the next 2-3 days for reassessment, rest and stay well hydrated, continue taking home medications as prescribed. Wear protection. Return immediately to the emergency department for any new or concerning symptoms especially burning when you urinate, fever, new or concerning pain, discharge coming from the penis, or any emergent concerns for life, limb, eyesight. Patient Language: Thai Prescriptions: New cephalexin 500 mg capsule 500 mg PO Q12H 7 Days Qty: 14 0RF No Action cyclobenzaprine 10 mg tablet 10 mg PO TID gabapentin 400 mg capsule 400 mg PO DAILY metformin 1,000 mg tablet 1,000 mg PO DAILY metoprolol succinate 25 mg tablet extended release 24 hr 25 mg PO DAILY lisinopril 40 mg tablet 40 mg PO DAILY rosuvastatin 10 mg tablet 10 mg PO DAILY meloxicam 15 mg tablet 15 mg PO DAILY hydralazine 50 mg tablet 50 mg PO TID aspirin 81 mg tablet 81 mg PO DAILY levetiracetam [Keppra] 1,000 mg tablet 1,000 mg PO Q12H Qty: 180 1RF Mounjaro 15 mg/0.5 mL pen injector 15 mg SUBCUT WEEKLY Patient Comments: Sundays Humalog KwikPen Insulin 200 unit/mL (3 mL) insulin pen 1 sliding scale dose SUBCUT TIDWMEAL Patient Comments: sliding scale Follow-up/Referrals: Juvencio,MD Rudy [Primary Care Provider, Unknown] - 3 Days Time of Disposition: 01:41
[2025-09-22 00:11] LABS: Add Urine Microscopic? YES; Appearance Urine Clear (Clear); Glucose Urine UA Negative (Negative); Leukocyte Esterase Ur 1+ LEU/UL (Negative); Nitrate Urine Negative (Negative); Non Pathogenic Casts 0-2; Specific Grav Ur 1.027 (1.001-1.035)
--- OUTSIDE RECORDS SUMMARY | 2025-09-22 00:29 | XMS_ITS | Encounter Summary ---
Author Organization [facility] Address [address] [place] [address] Phone Care Team Providers Care Hand Deicer Element Winder Name Role Phone Rudy Henning MD Primary Care Provider [phone] Oracio Blue MD Unavailable [phone] Encounter Details Date Type Department Care Team (Late st Contact Info) Description 04/13/2024 Documentation [facility] Medicine Rheumatology [address] [place] [address] [place] [address] Lelo Michel CMA Social History Tobacco Use [...] COVID: Suspected 11/03/2024 11/03/2024 11/04/2024 12:19 AM [employer] COVID: Suspected 11/24/2024 11/24/2024 11/24/2024 7:24 PM [employer] Influenza, adult 11/24/2024 11/24/2024 12/01/2024 3:07 AM [employer] documented as of this encounter Care Teams Hand Deicer Element Winder Relationship Specialty Start Date End Date Rudy Henning MD PCP - General Family Medicine 05/28/21 Oracio Blue MD [address] [address] Consulting Physician Endocrinology Diabetes & Metabolism 03/22/25 documented as of this encounter
--- OUTSIDE RECORDS SUMMARY | 2025-09-22 00:29 | XMS_ITS | Encounter Summary ---
Author Organization [facility] Healthcare Address [address] [place] [address] Care Team Providers Care Funeral Director/Embalmer Name Role Phone Rudy Henning MD Primary Care Provider [phone] Oracio Blue MD Unavailable [phone] Reason for Visit * Reason Onset Date Comments PA for dexcom sensors 09/20/2025 Encounter Details Date Type Department Care Team (Late st Contact Info) Description 09/20/[address] [facility] Family Medicine at [address] [place] [address] Rudy Henning MD [address] [place] [id number] PA for dexcom sensors Social History Tobacco Use Types Packs/Day Years Used Date Smoking Tobacco: Never Passive Smoke Exposure: Never Smokeless Tobacco: Never Alcohol Use Standard Drinks/Week Comments Not Currently 0 (1 standard drink = 0.6 oz pur e alcohol) AUDIT-C Answer Date Recorded Q1: How often do you have a drink containing alcohol? Never 04/29/2025 Q2: How many drinks containi ng alcohol do you have on a typical day when you are drinking? Patient does not drink Q3: How often do you have si x or more drinks on one occasion? Never 04/29/2025 PHQ-2 Answer Date Recorded PHQ-2 Total Score (If total score is 3 or more points, staff should administer the PHQ-9) 3 08/25/2024 PHQ-9 Answer Date Recorded PHQ-9 Total Score 6 08/25/2024 Personal Safety Answer Date Recorded Have you ever been in or are you currently in a harmful physical or emotional relationship or is someone making you feel afraid or unsafe? Denies 04/29/2025 Sex and Gender Information Value Date Recorded Sex Assigned at Not on file Legal Sex Male 7:02 PM CDT Gender Identity Not on file Sexual Orientation Not on file documented as of this encounter Miscellaneous Notes * Telephone Encounter - Criselda Wilson RN - 09/20/2025 10:52 AM CST Working on sending PA for dexcom sensors as last ones have been lost. Patient is on insulin pump. Patient insurance is straight medicaid. Medicaid number is [id number] R [employer] documented in this encounter Plan of Treatment Not on file documented as of this encounter Visit Diagnoses Not on filedocumented in this encounter Care Teams Funeral Director/Embalmer Relationship Specialty Start Date End Date Rudy Henning MD PCP - General Family Medicine 05/28/21 Oracio Blue MD [address] [address] Consulting Physician Endocrinology Diabetes & Metabolism 03/22/25 documented as of this encounter
--- OUTSIDE RECORDS SUMMARY | 2025-09-22 00:29 | XMS_ITS | Encounter Summary ---
Author Organization [facility] Healthcare Address [address] [place] [address] Care Team Providers Care Set Up Machinist Name Role Phone Rudy Henning MD Primary Care Provider [phone] Oracio Blue MD Unavailable [phone] Reason for Visit * Reason Onset Date Comments Med Refill 09/20/2025 Encounter Details Date Type Department Care Team (Late st Contact Info) Description 09/20/2025 Telephone [facility] Family Medicine at [address] [place] [address] Rudy Henning MD [address] [place] [id number] Med Refill Social History Tobacco Use Types Packs/Day Years [...] Telephone Encounter - Criselda Wilson RN - 09/21/2025 11:14 AM CST Called and left patient detailed message. BLE LOCATOR TEST DESK * Telephone Encounter - Rudy Henning MD - 09/20/2025 4:29 PM CST No. Discontinue ibuprofen. Only on Naproxen. BLE LOCATOR TEST DESK * Telephone Encounter - Keya Alas - 09/20/2025 12:43 PM CST Medication Question/Clarification Medication Name(s)/Dose: ibuprofen (ADVIL,MOTRIN) 800 mg tablet What is the question or clarification needed? Pharmacy is asking if you are aware that the patient has been on meloxicam from ortho Dr. Mary Gagnon? Do you want him on both? Please advise. If needed, Pharmacy(s) medication(s) should be sent to: on file Additional Comments: n/a Does message need to be routed? Yes-Action Needed BLE LOCATOR TEST DESK documented in this encounter Plan of Treatment Not on file documented as of this encounter Visit Diagnoses Not on filedocumented in this encounter Discontinued Medications Medication Sig Discontinue Reason Start Date End Da te ibuprofen (ADVIL,MOTRIN) 800 mg tablet Take 1 tablet (800 mg total) by mouth 3 (three) times a day as needed for pain (pain) for up to 10 days Therapy completed 09/20/2025 09/21/2025 documented as of this encounter Care Teams Set Up Machinist Relationship Specialty Start Date End Date Rudy Henning MD PCP - General Family Medicine 05/28/21 Oracio Blue MD [address] [address] Consulting Physician Endocrinology Diabetes & Metabolism 03/22/25 documented as of this encounter
--- OUTSIDE RECORDS SUMMARY | 2025-09-22 00:29 | XMS_ITS | Clinical Summary ---
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 interpretive data was last revised 2019. Creatinine Ur 59.1 mg/dL [facility] Comment: Interpretive Data No reference range established. Current interpretive data was last revised 2019. Albumin Creatinine Ratio, Ur 418(H) 1 - 29 mg/g [facility] Urine 12/09/2024 10:0 8 AM DOCUMENTATION SPEC 12/09/2024 12:33 PM DOCUMENTATION SPEC Rudy Henning MD LAB URINE ORDERABLES Final Resul t [facility] [address] [facility] Department [place] [address] * eGFR (11/24/2024 6:24 PM DOCUMENTATION SPEC) Pathologist [facility] eGFR >90 >=60 mL/min/1. 73 m2 Comment: Interpretive Data Reference Interval Normal >/= 90 mL/min/1.73m2 Mildly decreased* 60 - 89 mL/min/1.73m2 Mildly to moderately decreased 45 - 59 mL/min/1.73m2 Moderately to severely decreased 30 - 44 mL/min/1.73m2 Severely decreased 15 - 29 mL/min/1.73m2 Kidney Failure < 15 mL/min/1.73m2 *Relative to young adult level Estimated glomerular filtration rate is determined by the 2020 CKD-EPI equation recommended by the National Kid[employer] (A Unifying Approach to GFR Estimation: Recommendations of the NKF-ASK Task Force on Reassessing the Inclusion of Race in Diagnosing Kidney Disease, JASN 2020). The CKD-EPI equation should not be used for patients with unstable renal function and has not been validated in children and those over 70. Current interpretive data was last reviewed 2021. Testing performed by: [facility], [address] [place] [address], [place]., [address] Blood 11/24/2024 6:24 PM DOCUMENTATION SPEC 11/24/2024 6:38 PM DOCUMENTATION SPEC Oscar Davis DO LAB BLOOD ORDERABLES Final Result [facility] [address] [facility] Department [place] [address] * DIABETES EYE EXAM (09/20/2022) [facility] Signature SCRIBED DIABETIC DILATED EYE EXAM Normal Historical Provider HEALTH MAINTENANCE Final Result from Last 3 Months or Most Recently Relevant to Health Maintenance [place] [address] Care Teams Guest Services Attendant Relationship Specialty Start Date End Date Rudy Henning MD PCP - General Family Medicine 05/28/21 Oracio Blue MD [id number] [address] Consulting Physician Endocrinology Diabetes & Metabolism 03/22/25
[2025-09-22 00:45] VITALS: BP 138/76; PULSE 70; RESP 20; TEMP 36.6; O2SAT 99
[2025-09-22 01:09] LABS: Trichomonas Vag PCR NOT DETECTED (NOT DETECTE)
[2025-09-22] MEDS: CEPHALEXIN 500 MG CAPSULE PO (02:08)
[2025-09-22 02:10] VITALS: BP 137/75; PULSE 66; RESP 18; O2SAT 99
== END 2025-09-22 02:11 | disposition home or self-care (01) ==
PROVIDERS: Emergency Provider Student in an Organized Health Care Education/Training Program; PCP Family Medicine
DX: N39.0 Urinary tract infection, site not specified (principal); Z20.2 Contact with and (suspected) exposure to infections with a predominantly sexual mode of transmission; E11.9 Type 2 diabetes mellitus without complications; I10 Essential (primary) hypertension; E66.09 Other obesity due to excess calories; Z68.41 Body mass index [BMI] 40.0-44.9, adult; G47.33 Obstructive sleep apnea (adult) (pediatric); Z79.85 Long-term (current) use of injectable non-insulin antidiabetic drugs; Z79.4 Long term (current) use of insulin; Z79.899 Other long term (current) drug therapy; Z79.84 Long term (current) use of oral hypoglycemic drugs
CPT/HCPCS: 81001; 87086; 87491; 87591; 87661; 99283; A9270